=== PATIENT | female | born 1980 | race Asian ===

== ENCOUNTER 2016-05-07 09:53 | Emergency (ER) | payer BC ==
[2016-05-07] MEDS ORDERED: Al Hydrox/Mg Hydrox/Simet LIQ* 30 ML UDC PO ONE (10:37)
--- NOTE | 2016-05-07 11:43 | RAD ---
Indication: Epigastric abdominal pain. Vomiting. Assess for perforation. Comparison: None. Technique: Supine and upright views of the abdomen. Report: Negative for free air beneath the diaphragm. Normal bowel gas pattern. Moderate stool in the colon. LEFT pelvic phlebolith. No suspicious calcifications or mass effect. Clear lung bases. IMPRESSION: No evidence for free air. Negative exam.
--- NOTE | 2016-05-07 12:09 | UC ---
Rachel Turner SooYoung, scribed for [facility],David Avila MD on 05/07/16 at 1009 . Abdominal Pain Female HPI - HPI Summary HPI Summary: NOTE: Vital signs stable. Afebrile. emp is 97.6. Pulse ox 96. Pain is 7 out of 10, sharp, located at epigastric. Occasional EtOH, nonsmoker. Hx: treated for hepatitis and helicobacter. Positive PMHx: [place], hepatitis. Negative gallbladder US on 08/30/11. RUQ pain evaluated on 01/02/14, normal hepatic biliary scan with gallbladder ejection fraction. Dx: gastritis and helicobacter infection on 02/17. IN ROOM NOTE: A 35 y/o F presents to [facility] with c/o acute on chronic epigastric abd pain onset approx two weeks ago, worsening three days ago. Positive sx: nausea, vomiting ( 1x this AM), diarrhea yesterday. Denies fever, dysuria. Associated sx: heartburn. She describes the pain as sharp and burning, non-radiating. Alleviating factors: OTC medications (Pepcid), bent over position. Aggravating factors: eating. She notes waking from the pain at night. Does not take ulcer medications. No FHx of ulcers. PCP is Dr. Swanson. Pt was seen by a qual field manager, dx: helicobacter in 2009. NURSE'S NOTE: pt states that she is having stomach pain, pt points to epigastric area. pt states that this pain has been going on for the past 2 weeks and she feels that it is getting worse. pt states she is now having diarrhea that started yesterday. [ End ] - History of Current Complaint Stated Complaint: STOMACH PAIN Hx Obtained From: Patient, Family/Stock Mixer - Hx Last Menstrual Period: 02/11/14 Onset/Duration: Lasting Days, Still Present Severity Currently: Moderate Pain Intensity: 7 Pain Scale Used: 0-10 Numeric Location: Epigastric Radiates: No Character: Burning, Sharp Aggravating Factor(s): Food Alleviating Factor(s): Position, OTC Analgesics Associated Signs and Symptoms: Positive: Nausea, Vomiting, Diarrhea. Negative: Fever, Urinary Symptoms Allergies/Adverse Reactions: Allergies Allergy/AdvReac Type Severity Reaction Status Date / Time Amoxicillin [From Augmentin] Allergy Severe See Comment Verified 03/05/12 08:01 Clavulanic Acid Allergy Severe See Comment Verified 03/05/12 08:01 [From Augmentin] PMH/Surg Hx/FS Hx/Imm Hx Previously Healthy: Yes Endocrine History Of: Denies: Diabetes, Thyroid Disease, Hyperthyroidism, Hypothyroidism Cardiovascular History Of: Denies: Cardiac Disorders, Hypertension Neurological History Of: Denies: TIA, Seizures Psychological History Of: Denies: Anxiety, Depression - Surgical History Surgical History: Yes Surgery Procedure, Year, and Place: wisdom teeth extraced - Family History Known Family History: Positive: Diabetes, Other - POS: brain CA - Social History 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 Lives: With Family Alcohol Use: Occasionally Substance Use Type: None Smoking Status (MU): Never Smoked Tobacco Have You Smoked in the Last Year: No Review of Systems Constitutional: Negative Cardiovascular: Other - pos: heartburn Gastrointestinal: Abdominal Pain, Vomiting, Diarrhea, Other - pos: nausea Genitourinary: Negative All Other Systems Reviewed And Are Negative: Yes Physical Exam Triage Information Reviewed: Yes Appearance: Well-Appearing, No Pain Distress, Well-Nourished Vital Signs: Initial Vital Signs Temp 97.6 F 05/07/16 10:10 Pulse 80 05/07/16 10:10 Resp 18 05/07/16 10:10 BP 114/71 05/07/16 10:10 Pulse Ox 96 05/07/16 10:10 Vital Signs Reviewed: Yes Eyes: Positive: Conjunctiva Clear ENT: Positive: Hearing grossly normal, Pharynx normal, TMs normal. Negative: Muffled/hoarse voice Neck: Positive: Supple, No Lymphadenopathy Respiratory: Positive: Chest non-tender, Lungs clear, Normal breath sounds, No respiratory distress Cardiovascular: Positive: RRR, No Murmur Abdomen Description: Positive: No Organomegaly, Soft, Other: - POS: PAIN AT SUBXIPHOID REGION, MILD DISCOMFORT IN RUQ AND EPIGASTRIC. Negative: CVA Tenderness (R), CVA Tenderness (L) Bowel Sounds: Positive: Present Musculoskeletal: Positive: Strength Intact, Other: - [place] Neurological: Positive: Alert Psychological: Positive: Age Appropriate Behavior Skin: Negative: rashes Diagnostics - Radiology ABD XR Xray Interpretation: Positive (See Comments) - IMPRESSION: No evidence for free air. Negative exam. Radiology Interpretation Completed By: Radiologist Abd Pain Female Course/Dx - Course Course Of Treatment: MDM: UA: negative, UB trace intact. Abd XR: negative. Discussed with pt and at length plan of care, d/c home with three prescriptions and Pepto Bismal (pt is allergic to amoxicillan). Also, have given her Zofran for nausea. Mentioned to her that she had considerable amount of stool in her colon but is not obstructed or perforated. She'll begin regime and call her primary doctor in two days. - Differential Dx/Diagnosis Differential Diagnosis: Other - biliary colic, constipation, peptic dz, gastritis (ulcer) Provider Diagnoses: peptic dz Discharge - Discharge Plan Condition: Stable Disposition: HOME Prescriptions: Clarithromycin [Clarithromycin 500 MG ER] 500 mg PO BID #30 tab MDD 2 Metronidazole [Flagyl 500 MG TAB] 500 mg PO BID #30 tab MDD 2 Omeprazole CAP* [Prilosec CAP* 20 MG] 20 mg PO DAILY #30 cap.dr MDD 2 Ondansetron ODT TAB* [Zofran Odt TAB*] 4 mg PO Q6H #10 tab.odt MDD 4 Patient Education Materials: Gastritis (ED), Helicobacter Pylori (ED), Diet for Ulcers and Gastritis (ED) Referrals: Mario Swanson MD [Primary Care Provider] - Additional Instructions: WE DISCUSSED: 1. You probably have gastritis or an ulcer. 2. Start the following medications: Clarithromycin: 500mg, twice a day Flagyl: 500mg, twice a day Omeprazole, 20mg, twice a day Pepto Bismol: one tablespoon, four times a day; get this over the counter. Zofran for nausea, up to 4 a day Take this for 2 weeks. 3. Your x ray doesn't show obstruction or perforation. 4. Follow up with your doctor next week. Go to ED if you have any new or increasing abdominal pain. Simplify your diet today and tomorrow: no fried foods, meat or dairy. The documentation as recorded by the Rachel rivera SooYoung accurately reflects the service I personally performed and the decisions made by me, David Acosta MD.
[2016-05-07 13:05] VITALS: BP 118/83
--- NOTE | 2016-05-07 13:05 | UC ---
I, Noelle Ramos, scribed for David Acosta MD on 05/07/16 at 1220 . Progress - Progress Note Progress Note: 1215: As nurse preparing to discharge pt, pt had possible vasovagal response. Pt given fluids orally, she laid down, will reevaluate. 1250: Pt re-evaluated, near-syncopal episode but did not experience LOC. Vital signs as documented by nurse show increase in pulse and no significant change in BP, slight dizziness on standing. Pt told to rest and drink lots of fluids. No evidence of perforation, or gastritis or ulcerative bleeding. I spoke to pt about her pain in RUQ, which was previously worked up without dx of gallbladder dz, she may need this. She was given med for her ulcer treatment and will F/U on Monday with her PCP. Her and know to follow up at ED if needed until then. Pt told us she has a hx of orthostasis and is being treated for this. Orthostatic results at 1250: Lying: HR 59, BP 108/178, neg dizziness. Sitting: HR 74, BP 109/59, pos dizziness. Standing: HR 75, BP 118/83, pos dizziness. The documentation as recorded by the scribeRachel SooYoung accurately reflects the service I personally performed and the decisions made by me, David Acosta MD.
== END 2016-05-07 12:13 | disposition home or self-care (01) ==
LOC: UCEAST 09:53
DX: K30 Functional dyspepsia (principal); Z88.1 Allergy status to other antibiotic agents; Z32.02 Encounter for pregnancy test, result negative
CPT/HCPCS: 74020; 81003; 84702; 99212; A9270-GY; G0463

== ENCOUNTER 2016-05-19 23:27 | Emergency (ER) | payer BC ==
[2016-05-19] MEDS ORDERED: NS 0.9% 1000 ML* 1,000 ML IV ONE (23:56)
[2016-05-20 00:35] LABS: Hematocrit 43 % (35-47); Hemoglobin 14.5 g/dl (12.0-16.0); Mean Corpuscular HGB Conc 34 g/dl (31-36); Mean Corpuscular Hemoglobin 28 pg (27-31); Mean Corpuscular Volume 84 fL (80-97); Mean Platelet Volume 8 um3 (7.4-10.4); Red Blood Count 5.14 10^6/ul (4.0-5.4); Red Cell Distribution Width 13 % (10.5-15); White Blood Count 9.6 10^3/ul (3.5-10.8)
[2016-05-20 00:46] LABS: ALT 14 U/L (7-52); AST 17 U/L (13-39); Albumin 4.3 g/dL (3.2-5.2); Alkaline Phosphatase 56 U/L (34-104); Anion Gap 10 mmol/L (2-11); BUN/Creatinine Ratio 10.5 (8-20); Blood Urea Nitrogen 6 mg/dL (6-24); CO2 Carbon Dioxide 24 mmol/L (22-32); Calcium 9.5 mg/dL (8.6-10.3); Chloride 97 mmol/L (101-111); EGFR African American 156.1 (>60); EGFR Non-African American 121.4 (>60); Globulin 3.6 g/dL (2-4); Glucose 122 mg/dL (70-100); Lipase < 10 U/L (11.0-82.0); Potassium 3.8 mmol/L (3.5-5.0); Sodium 131 mmol/L (133-145); Total Protein 7.9 g/dL (6.4-8.9)
[2016-05-20 01:14] LABS: Urine Bacteria 1+ (Absent); Urine Bilirubin Negative (Negative); Urine Glucose Negative (Negative); Urine Nitrite Negative (Negative)
[2016-05-20] MEDS ORDERED: Lidocaine 2% VISCOUS* 15 ML UDC PO ONE (01:41)
[2016-05-20] MEDS ORDERED: Al Hydrox/Mg Hydrox/Simet LIQ* 30 ML UDC PO ONE (01:41)
[2016-05-20] MEDS ORDERED: diPHENhydraMINE IV* 50 MG in NS 0.9% 50 ML* 50 ML IVPB ONE (02:27)
[2016-05-20] MEDS ORDERED: methylPREDNISolone SOD SUCC* 125 MG 2 ML VIAL IV ONE (02:27)
[2016-05-20 07:31] VITALS: BP 104/67
--- NOTE | 2016-05-20 07:50 | RAD ---
INDICATION: Right upper quadrant pain. COMPARISON: Comparison is made with a prior right upper quadrant ultrasound from August 30, 2011. TECHNIQUE: Multiple real-time images of the right upper quadrant were obtained. FINDINGS: The gallbladder appear normal. No gallbladder wall thickening or pericholecystic fluid is present. No intra or extrahepatic ductal distention is present. The common bile duct measured 0.2 cm in diameter. The liver is normal in size without significant focal abnormality. The pancreas is partially obscured by overlying bowel gas. The right kidney is normal in size without evidence for hydronephrosis. IMPRESSION: NEGATIVE EXAM.
== END 2016-05-20 08:04 | disposition home or self-care (01) ==
LOC: ED 23:27
DX: R10.11 Right upper quadrant pain (principal)
CPT/HCPCS: 36415; 76705; 80053; 81003; 81015; 83690; 85025; 87086; 87502; 96374; 99282; A9270-GY; J1200; J2930

== ENCOUNTER 2017-01-26 10:06 | Inpatient (IN) | payer BC, OTHER ==
[2017-01-26] MEDS: Vancomycin(*) 1,000 MG in D5W 250 ML BAG* 250 ML IVPB SCH (13:29)
[2017-01-26 13:34] LABS: Hematocrit 41 % (35-47); Hemoglobin 13.4 g/dl (12.0-16.0); Mean Corpuscular HGB Conc 33 g/dl (31-36); Mean Corpuscular Hemoglobin 29 pg (27-31); Mean Corpuscular Volume 86 fL (80-97); Mean Platelet Volume 11 um3 (7.4-10.4); Red Blood Count 4.71 10^6/ul (4.0-5.4); Red Cell Distribution Width 14 % (10.5-15); White Blood Count 9.3 10^3/ul (3.5-10.8)
[2017-01-26] MEDS ORDERED: OBEPIDURAL* 250 ML ONE (16:07)
[2017-01-27] MEDS: Vancomycin(*) 1,000 MG in D5W 250 ML BAG* 250 ML IVPB SCH (01:04)
[2017-01-27] MEDS ORDERED: Oxytocin in LR* 20 UNITS/1,000 ML BAG IVPB ONE (05:08)
[2017-01-27] MEDS ORDERED: Witch Hazel PAD* JAR TOPICAL PRN (05:27)
[2017-01-27] MEDS ORDERED: Tetan/Diph/Pertus SYR(Tdap)* 0.5 ML SYR(BOOSTRIX) use SYR IM ONE (05:27)
[2017-01-27] MEDS ORDERED: Dibucaine 1% 28.35 GM TUBE PR PRN (05:27)
[2017-01-27] MEDS ORDERED: Glycerin ADULT SUPP PR PRN (05:27)
[2017-01-27] MEDS ORDERED: Acetaminophen TAB* 325 MG PO PRN (05:27)
[2017-01-27] MEDS ORDERED: Lidocaine 1% MPF* 2 ML VIAL ONE (07:01)
[2017-01-27] MEDS: Ibuprofen TAB* 600 MG PO PRN ×3 (08:41→21:51)
[2017-01-27] MEDS: Docusate CAP* 100 MG PO SCH ×3 (08:42→21:51)
[2017-01-27] MEDS: Simethicone TAB* 80 MG TAB.CHEW PO SCH (15:29)
--- NOTE | 2017-01-27 20:45 | PTEDU ---
Patient Name: SEJAL GUZMAN SEJAL GUZMAN selected video: Never Ever Shake a Baby to view on 01/27/2017 at 8:45:01 PM from [id number]
[2017-01-28] MEDS: Ferrous Gluconate TAB* 324 MG TAB PO SCH ×2 (08:36→22:22)
[2017-01-28] MEDS: Ibuprofen TAB* 600 MG PO PRN ×3 (08:37→20:45)
[2017-01-28] MEDS: Docusate CAP* 100 MG PO SCH ×3 (08:37→20:45)
[2017-01-28 12:16] LABS: Hematocrit 34 % (35-47); Hemoglobin 11.4 g/dl (12.0-16.0); Mean Corpuscular HGB Conc 34 g/dl (31-36); Mean Corpuscular Hemoglobin 29 pg (27-31); Mean Corpuscular Volume 86 fL (80-97); Mean Platelet Volume 10 um3 (7.4-10.4); Red Blood Count 3.92 10^6/ul (4.0-5.4); Red Cell Distribution Width 14 % (10.5-15); White Blood Count 14.4 10^3/ul (3.5-10.8)
[2017-01-28 19:52] VITALS: BP 118/83
[2017-01-29] MEDS: Ibuprofen TAB* 600 MG PO PRN (03:57)
[2017-01-29] MEDS: Docusate CAP* 100 MG PO SCH (08:50)
== END 2017-01-29 12:28 | disposition home or self-care (01) | DRG 560 ==
LOC: MCHOBOUT 10:06 → MCHOB 10:35
PROVIDERS: ADMIT Midwife; ATTEND Midwife
PROC: 10E0XZZ Delivery of Products of Conception, External Approach (ICD-10-PCS; principal; 2017-01-27)
PROC: 10907ZC Drainage of Amniotic Fluid, Therapeutic from Products of Conception, Via Natural or Artificial Opening (ICD-10-PCS; 2017-01-27)
PROC: 0KQM0ZZ Repair Perineum Muscle, Open Approach (ICD-10-PCS; 2017-01-27)
DX: O24.429 Gestational diabetes mellitus in childbirth, unspecified control (principal); O48.0 Post-term pregnancy; O99.824 Streptococcus B carrier state complicating childbirth; O70.1 Second degree perineal laceration during delivery; O77.0 Labor and delivery complicated by meconium in amniotic fluid; Z3A.40 40 weeks gestation of pregnancy; Z37.0 Single live birth
CPT/HCPCS: 36415; 85025; 86850; 86900; 86901; A9270-GY; J3370

== ENCOUNTER 2017-10-23 17:45 | Emergency (ER) | payer OTHER ==
--- OUTSIDE RECORDS SUMMARY | 2017-10-23 17:50 | XMS REPORT ---
:1980 External Reference #:[id number] Author Organization [employer] Address [address] [place] [address] [place] [address] Phone [phone] Care Team Providers Name Role Phone Mario Swanson MD Primary Care Physician Unavailable Payers Type Date Identification Numbers Payment Provider Subscriber Commercial Policy Number: [id number] [facility] Vargas Velásquez PayID: [id number] [address] [place] [address] Problems Description No Information Family History Date Family Member(s) Problem(s) Comments General Non-Contributory Social History Type Date Description Comments Marital Status Lives With Spouse Occupation Unemployed ETOH Use Denies alcohol use Smoking Patient has never smoked Recreational Drug Use Denies Drug Use Daily Caffeine Does Not Consume Caffeine Exercise Type/Frequency Does not exercise Allergies, Adverse Reactions, Alerts Date Description Reaction Status Severity Comments 09/27/2017 Amoxicillin active 09/27/2017 Biaxin active Medications Medication Date Status Form Strength Qnty SIG Indications Ordering Provider No Active Active Unknown Medications 018 No Active Hx Unknown Medications 018 - 018 Cefdinir /0 Hx Capsules 300mg 1 capsule Unknown 000 by mouth twice a day Vital Signs Date Vital Result Comment 09/27/2017 Height 62 inches 5'2" Weight 147.00 lb Heart Rate 60 /min BP Systolic 104 mmHg BP Diastolic 68 mmHg Respiratory Rate 16 /min Body Temperature 97.3 F BMI (Body Mass Index) 26.9 kg/m2 Results Description No Information Procedures Date CPT Code Description Status 09/27/2017 38348 Anoscopy Completed Plan of Care 09/27/2017 - Cristóbal Vallejo MDK64.4 Residual hemorrhoidal skin tagsFollow up :None needed
--- OUTSIDE RECORDS SUMMARY | 2017-10-23 17:51 | XMS REPORT ---
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 Active Onset: 11/23/2011 Thoracic and lumbosacral neuritis Delgado Mclean M.D. Active Onset: 08/29/2011 Gastritis Delgado Mclean M.D. Active Onset: 08/29/2011 Epigastric pain Delgado Mclean M.D. Active Onset: 08/25/2011 Inflammatory disease of liver Delgado Mclean M.D. Active Onset: 07/20/2011 Neck pain Fang Chanel M.D. Active Onset: 07/04/2011 Acute lymphadenitis Fang Chanel M.D. 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 Exercises regularly Allergies, Adverse Reactions, Alerts Date Description Reaction Status Severity Comments 11/23/2011 Amoxicillin active 05/23/2016 Biaxin active 10/27/2010 NKDA inactive Medications Medication Date Status Form Strength Qnty SIG Indications Ordering Provider Cefdinir 09/26/ Active Capsules 300mg 20cap 1 tablet H66.92 Manuela 2017 s twice a Mayelin day DOLLY Callejas No Active 09/26/ Hx Unknown Medications 2017 - 2017 Pantoprazole 05/21/ Hx Tablets DR 20mg 30tab 1 by mouth R10.13 Karis Sodium 2015 - s every day DOLLY Marino 2016 No Active 05/17/ Hx Unknown Medications 2015 - 2015 No Active 05/12/ Hx Unknown Medications 2015 - 2015 Cipro 05/12/ Hx Tablets 250mg 10tab 1 by mouth Jesusita 2015 - s twice a day Seth 05/17/ Afnp-C 2015 Omeprazole 02/24/ Hx Capsules 40mg 30cap 1 by mouth Mario reyes every day Sky, 05/12/ MMiki 2015 No Active 11/04/ Hx Unknown Medications 2013 - 2013 Protonix 11/04/ Hx Tablets 40mg 30tab 1 po qd Mario Swanson, 02/24/ MMiki 2013 Physical Therapy Hx 1unit treatment Delgado 2011 - s and Maya Mclean, 11/04/ evaluation MMiki 2013 of low back pain Ceftin 07/03/ Hx Tablets 250mg 14tab 1 po bid Katlin3 Fang Riggs 2012 [place] s for 7 days Darío 07/19/ MMiki 2011 Physical Therapy 02/07/ Hx please 724.2 Jesusita 2010 - evaluate Seth, 07/03/ and treat Afnp-C 2011 for low back pain Medrol Dosepak 02/07/ Hx Tablets 4mg 1pk take as 724.2 Jesusita 2010 - directed Seth, 02/14/ Afnp-C 2010 Vicodin 02/07/ Hx Tablets 5-500mg 30tab 1-2 po 724.2 Jesusita 2010 - s q4h-6h prn Seth, 07/03/ pain Afnp-C 2012 Ambien CR 11/02/ Hx Tablets ER 6.25mg 30tab 1 po qhs 780.52 Delgado 2010 [place] Mclean, 02/07/ M.D. 2010 failure to maintain sleep Sertraline HCL 05/25/ Hx Tablets 50mg 90tab 1 po qd 296.31 Delgado 2010 - may Mclean, M.D. 2010 Note 10/08/ Hx 1unit please Delgado 2009 - s excuse from Maya Mclean, 06/28/ work for 14 M.D. 2010 days from today due to illness Clarithromycin 10/07/ Hx Tablets 500mg 28tab 1 bid with 789.06 Delgado 2009 - s food for 14 IgnacioEdie Vinay, 11/09/ days M.D. 2009 Amoxicillin 10/07/ Hx Tablets 875mg 28tab one tab po 789.06 Delgado 2009 - s bid for 14 Maya Mclean, 11/09/ days M.D. 2009 Lansoprazole 10/07/ Hx Capsules 30mg 90cap 1 po qd 789.06 Delgado 2009 - DR amy Mclean, M.D. 2009 Meclizine HCL 10/07/ Hx Tablets 12.5mg 30tab one to two 386.10 Delgado 2009 - s tab po Maya Mclean, 11/09/ every 12 M.D. 2010 hours Omeprazole 10/07/ Hx Capsules 40mg 60cap 1 po bid 789.06 Delgado 2009 - DR amy Mclean, 06/28/ M.D. 2010 Cyclessa 06/16/ Hx Tablets 1pk 1 po qd Jesusita 2009 - Seth, 11/22/ Afnp-C 2011 Paxil 03/02/ Hx Tablets 20mg 30tab 1 po qd 296.31 Delgado 2009 - amy Mclean, 05/25/ M.D. 2010 Citalopram 02/05/ Hx Tablets 10mg Mario Magaña Hydrobromide 2008 - Sky, 02/05/ M.D. 2008 Paxil 02/05/ Hx Tablets 10mg 30tab 1 po qd Mario Magaña 2009 - s Sky, 03/02/ M.D. 2009 Loestrin 24 Fe / Hx Tablets 1-20mg-mc Unknown 0000 - g 04/20/ 2010 Pepcid ac / Hx Tablets 10mg 60tab 1 bid prn Unknown 0000 - s for stomach 2011 Omeprazole / Hx Capsules 20mg 30cap 1 by mouth Mario reyes every day Sky 09/25/ Jarret 2018 Vital Signs Date Vital Result Comment 09/26/2017 BP Systolic 94 mmHg BP Diastolic 62 mmHg Heart Rate 72 /min Body Temperature 98.1 F Height 63.5 inches 5'3.50" Weight 148.00 lb BMI (Body Mass Index) 25.8 kg/m2 05/23/2016 BP Systolic 100 mmHg BP Diastolic 70 mmHg Heart Rate 72 /min Body Temperature 98.4 F Respiratory Rate 16 /min Height 63.5 inches 5'3.50" Weight 161.50 lb BMI (Body Mass Index) 28.2 kg/m2 05/12/2016 BP Systolic 110 mmHg BP Diastolic 60 mmHg Heart Rate 68 /min Body Temperature 98.2 F Respiratory Rate 16 /min Height 63.5 inches 5'3.50" 05/22/2015 BP Systolic 100 mmHg BP Diastolic 52 mmHg Heart Rate 72 /min Body Temperature 98.1 F Respiratory Rate 16 /min Height 63.5 inches 5'3.50" Weight 151.25 lb BMI (Body Mass Index) 26.4 kg/m2 05/13/2015 BP Systolic 106 mmHg BP Diastolic 64 mmHg Heart Rate 72 /min Body Temperature 96.9 F Respiratory Rate 16 /min Height 63.5 inches 5'3.50" Weight 151.25 lb BMI (Body Mass Index) 26.4 kg/m2 02/24/2014 BP Systolic 122 mmHg BP Diastolic 70 mmHg Heart Rate 68 /min Body Temperature 98.6 F Respiratory Rate 16 /min Height 63.5 inches 5'3.50" Weight 154.00 lb BMI (Body Mass Index) 26.8 kg/m2 11/27/2013 BP Systolic 122 mmHg BP Diastolic 70 mmHg Heart Rate 64 /min Body Temperature 96.9 F Respiratory Rate 18 /min Height 63.5 inches 5'3.50" Weight 150.00 lb BMI (Body Mass Index) 26.2 kg/m2 11/04/2013 BP Systolic 120 mmHg BP Diastolic 70 mmHg Heart Rate 58 /min Body Temperature 97.8 F Respiratory Rate 16 /min Height 63.5 inches 5'3.50" Weight 151.00 lb BMI (Body Mass Index) 26.3 kg/m2 01/23/2012 BP Systolic 110 mmHg BP Diastolic 70 mmHg Heart Rate 76 /min Body Temperature 97.2 F Height 63.5 inches 5'3.50" Weight 164.00 lb BMI (Body Mass Index) 28.6 kg/m2 11/23/2011 BP Systolic 112 mmHg BP Diastolic 70 mmHg Heart Rate 72 /min Body Temperature 97.6 F Height 63.5 inches 5'3.50" Weight 163.00 lb BMI (Body Mass Index) 28.4 kg/m2 09/05/2011 BP Systolic 98 mmHg BP Diastolic 82 mmHg Heart Rate 78 /min Body Temperature 98.5 F Height 63.5 inches 5'3.50" Weight 164.00 lb BMI (Body Mass Index) 28.6 kg/m2 08/29/2011 BP Systolic 104 mmHg BP Diastolic 70 mmHg Heart Rate 84 /min Body Temperature 98.3 F Height 63.5 inches 5'3.50" Weight 162.00 lb BMI (Body Mass Index) 28.2 kg/m2 08/25/2011 BP Systolic 120 mmHg BP Diastolic 88 mmHg Heart Rate 84 /min Body Temperature 98.3 F Height 63.5 inches 5'3.50" Weight 162.00 lb BMI (Body Mass Index) 28.2 kg/m2 07/20/2011 BP Systolic 102 mmHg BP Diastolic 72 mmHg Heart Rate 78 /min Body Temperature 98.7 F Height 63.5 inches 5'3.50" Weight 166.00 lb BMI (Body Mass Index) 28.9 kg/m2 07/04/2011 BP Systolic 102 mmHg BP Diastolic 70 mmHg Heart Rate 72 /min Body Temperature 98.7 F Height 63.5 inches 5'3.50" Weight 165.00 lb BMI (Body Mass Index) 28.8 kg/m2 02/15/2011 BP Systolic 102 mmHg BP Diastolic 62 mmHg Heart Rate 72 /min Respiratory Rate 15 /min Height 63.5 inches 5'3.50" Weight 166.00 lb BMI (Body Mass Index) 28.9 kg/m2 02/07/2011 BP Systolic 118 mmHg BP Diastolic 80 mmHg Heart Rate 76 /min Height 63.5 inches 5'3.50" 11/02/2010 BP Systolic 104 mmHg BP Diastolic 58 mmHg Heart Rate 72 /min Body Temperature 98.3 F Height 63.5 inches 5'3.50" Weight 166.00 lb BMI (Body Mass Index) 28.9 kg/m2 08/02/2010 BP Systolic 104 mmHg BP Diastolic 68 mmHg Heart Rate 76 /min Body Temperature 97.9 F Respiratory Rate 16 /min Height 63.5 inches 5'3.50" Weight 167.00 lb BMI (Body Mass Index) 29.1 kg/m2 06/28/2010 BP Systolic 90 mmHg BP Diastolic 70 mmHg Heart Rate 78 /min Body Temperature 98.0 F Height 63.5 inches 5'3.50" Weight 164.00 lb BMI (Body Mass Index) 28.6 kg/m2 05/25/2010 BP Systolic 100 mmHg BP Diastolic 70 mmHg Heart Rate 76 /min Height 63.5 inches 5'3.50" Weight 166.00 lb BMI (Body Mass Index) 28.9 kg/m2 12/21/2009 BP Systolic 100 mmHg BP Diastolic 70 mmHg Heart Rate 56 /min Body Temperature 98.1 F Height 63.5 inches 5'3.50" Weight 161.00 lb BMI (Body Mass Index) 28.1 kg/m2 11/09/2009 BP Systolic 104 mmHg BP Diastolic 70 mmHg Heart Rate 60 /min irr/skipping Body Temperature 97.7 F Respiratory Rate 16 /min Height 63.5 inches 5'3.50" Weight 155.00 lb BMI (Body Mass Index) 27.0 kg/m2 10/20/2009 BP Systolic 102 mmHg BP Diastolic 82 mmHg Heart Rate 66 /min Body Temperature 98.0 F Height 63.5 inches 5'3.50" Weight 157.00 lb BMI (Body Mass Index) 27.4 kg/m2 10/07/2009 BP Systolic 100 mmHg BP Diastolic 62 mmHg Heart Rate 68 /min Body Temperature 98.7 F Respiratory Rate 16 /min Height 63.5 inches 5'3.50" Weight 156.00 lb BMI (Body Mass Index) 27.2 kg/m2 06/16/2009 BP Systolic 110 mmHg BP Diastolic 70 mmHg Heart Rate 80 /min Body Temperature 98.1 F Weight 162.00 lb 03/17/2009 BP Systolic 100 mmHg BP Diastolic 70 mmHg Heart Rate 68 /min Weight 163.00 lb 03/02/2009 BP Systolic 110 mmHg BP Diastolic 70 mmHg Heart Rate 72 /min Height 63.5 inches 5'3.50" Weight 160.00 lb BMI (Body Mass Index) 27.9 kg/m2 02/05/2009 BP Systolic 90 mmHg BP Diastolic 60 mmHg Heart Rate 68 /min Height 63.5 inches 5'3.50" Weight 156.00 lb BMI (Body Mass Index) 27.2 kg/m2 12/09/2008 BP Systolic 82 mmHg BP Diastolic 64 mmHg Heart Rate 96 /min Body Temperature 99.1 F Height 63.5 inches 5'3.50" Weight 158.00 lb BMI (Body Mass Index) 27.5 kg/m2 12/02/2008 BP Systolic 88 mmHg BP Diastolic 60 mmHg Heart Rate 56 /min Body Temperature 98.2 F Height 63.5 inches 5'3.50" Weight 154.00 lb BMI (Body Mass Index) 26.8 kg/m2 Results Test Date Test Result H/L Range Note Laboratory test 06/24/2016 hCG,Beta Positive mIU/mL Negative <6 1 finding Subunit,Qual,Serum Rapid Influenza A & 05/20/2016 Influenza A NEGATIVE Negative 2 B Molecular Molecular Influenza B Molecular NEGATIVE Negative Laboratory test finding 05/07/2016 Poc , Urine Negative Negative 3 Poc Urinalysis 05/07/2016 Poc Glucose, Urine Negative Negative Poc Bilirubin, Urine Negative Negative Poc Ketone, Urine Negative Negative Poc Specific [place], Urine 1.015 1.010-1.030 Poc Blood, Urine Trace-intact Negative Poc pH, Urine 6.5 5-9 Poc Protein, Urine Negative Negative Poc Urobilinogen, Urine 0.2 Negative Poc Nitrite, Urine Negative Negative Poc Leukocytes, Urine Negative Negative Poc Color, Urine Yellow Poc Clarity, Urine Clear 4 CBC With Differential/Platelet 05/26/2015 WBC 7.1 x10E3/uL 3.4-10.8 1 RBC 4.84 x10E6/uL 3.77-5.28 1 Hemoglobin 14.0 g/dL 11.1-15.9 1 Hematocrit 42.0 % 34.0-46.6 1 MCV 87 fL 79-97 1 MCH 28.9 pg 26.6-33.0 1 MCHC 33.3 g/dL 31.5-35.7 1 RDW 13.8 % 12.3-15.4 1 Platelets 313 x10E3/uL 150-379 1 Neutrophils 51 % 1 Lymphs 39 % 1 Monocytes 7 % 1 Eos 2 % 1 Basos 1 % 1 Immature Cells TNP 1 Neutrophils (Absolute) 3.7 x10E3/uL 1.4-7.0 1 Lymphs (Absolute) 2.8 x10E3/uL 0.7-3.1 1 Monocytes(Absolute) 0.5 x10E3/uL 0.1-0.9 1 Eos (Absolute) 0.1 x10E3/uL 0.0-0.4 1 Baso (Absolute) 0.1 x10E3/uL 0.0-0.2 1 Immature Granulocytes 0 % 1 Immature Grans (Abs) 0.0 x10E3/uL 0.0-0.1 1 NRBC TNP 1 Hematology Comments: TNP 1 Comp. Metabolic Panel (14) 05/26/2015 Glucose, Serum 102 mg/dL High 65-99 1 BUN 8 mg/dL 6-20 1 Creatinine, Serum 0.53 mg/dL Low 0.57-1.00 1 eGFR If NonAfricn Am 125 mL/min/1.73 >59 1 eGFR If Africn Am 144 mL/min/1.73 >59 1 BUN/Creatinine Ratio 15 8-20 1 Sodium, Serum 142 mmol/L 134-144 1 Potassium, Serum 4.3 mmol/L 3.5-5.2 1 Chloride, Serum 102 mmol/L 97-108 1 Carbon Dioxide, Total 25 mmol/L 18-29 1 Calcium, Serum 9.2 mg/dL 8.7-10.2 1 Protein, Total, Serum 6.9 g/dL 6.0-8.5 1 Albumin, Serum 4.5 g/dL 3.5-5.5 1 Globulin, Total 2.4 g/dL 1.5-4.5 1 A/G Ratio 1.9 1.1-2.5 1 Bilirubin, Total 0.4 mg/dL 0.0-1.2 1 Alkaline Phosphatase, S 46 IU/L 39-117 1 Ast (Sgot) 13 IU/L 0-40 1 Alt (SGPT) 5 IU/L 0-32 1 Lipid Panel 05/26/2015 Cholesterol, Total 216 mg/dL High 100-199 1 Triglycerides 87 mg/dL 0-149 1 HDL Cholesterol 64 mg/dL >39 1, 5 VLDL Cholesterol Henry 17 mg/dL 5-40 1 LDL Cholesterol Calc 135 mg/dL High 0-99 1 Comment: TNP 1 Pap HPV High Risk 05/22/2015 Diagn See Comment: 6 Adeq See Comment: 7 [email or web address] See Comment: 8 Perfor See Comment: 9 Comm . Note See Comment: 10 Iglbp See Comment: 11 HPV, high-risk Negative Negative 12 Laboratory test finding 05/22/2015 PDF [id number] SEE IMAGE Ua - Non Micro (Fma) 05/22/2015 Appearance CLEAR Color YELLOW Glucose, Urine (Fma/CMC/CTX) NEG Bilirubin NEG Ketones NEG SP Grav 1.020 Blood NEG PH 7.0 Protein NEG Urobil 0.2 Nitrite NEG Leukocytes (Fma/CMC/Centrex) NEG Ua - Micro (Fma) 05/13/2015 Appearance cloudy Color yellow Glucose, Urine (Fma/CMC/CTX) - Bilirubin - Ketones - SP Grav 1.020 Blood moderate (menses) PH 7.0 Protein 2+ (ssa) Urobil 0.2 Nitrite - Leukocytes (Fma/CMC/Centrex) moderate Hyaline - /Lpf Granular - /Lpf WBC (Fma,Centrex) 8-12 RBC 5-10 Mucus (Fma/CBC/Centrex) sm amt /Lpf Epith occ /Lpf Bacteria trace /Hpf Amorphous (Fma/CMC/Centrex) - /Lpf Crystals, Fluid (Fma/CMC/CTX) - Urine Culture Routine 05/13/2015 Urine Culture, Routine Final report 13 , 14 Result 1 Escherichia coli 13, 15 Antimicrobial Susceptibility See Comment: 13, 16 Laboratory test finding 11/05/2013 Stool Helicobacter Negative Negative 17 pylori Ag CBC 11/04/2013 WBC 5.5 x10E3/uL 4.3-10.9 18 RBC 4.82 x10E6/uL 3.80-5.30 18 Hemoglobin 13.8 g/dL 11.8-15.8 18 Hematocrit 41.7 % 35.0-47.0 18 MCV 86.5 fl 82.0-98.0 18 MCH 28.6 pg 27.5-33.5 18 MCHC 33.1 g/dL 32.0-36.0 18 RDW 13.5 % 11.5-14.5 18 Platelet Count 312 x10E3/uL 130-400 18 MPV 10.4 fl 8.6-12.6 18 Segmented Neutrophils 41.9 % Low 44.0-74.0 18 Lymphocytes 47.3 % High 15.0-45.0 18 Monocytes 6.7 % 2.0-13.0 18 Eosinophils 2.7 % 0.0-6.0 18 Basophils 1.4 % 0.0-2.0 18 Neutrophil Absolute 2.3 x10E3/uL 1.4-7.0 18 Lymphocytes Absolute 2.6 x10E3/uL 1.0-3.4 18 Monocyte Absolute 0.4 x10E3/uL 0.2-1.0 18 Eosinophil Absolute 0.1 x10E3/uL 0.0-0.5 18 Basophil Absolute 0.1 x10E3/uL 0.0-0.2 18 Comprehensive Metabolic 11/04/2013 Glucose 86 mg/dL 70-100 18 BUN 9 mg/dL 4-18 18 Creatinine, Serum 0.58 mg/dL 0.50-1.10 18 Sodium 140 mmol/L 136-146 18 Potassium 4.3 mmol/L 3.5-5.3 18 Chloride 103 mmol/L 98-110 18 Carbon Dioxide 29 mmol/L 20-32 18 Albumin 4.6 g/dL 3.5-4.7 18 Protein, Total 7.5 g/dL 6.4-8.3 18 Calcium 9.2 mg/dL 8.4-10.4 18 Alkaline Phosphatase 55 U/L 10-118 18 Sgot (Ast) 14 U/L 3-40 18 SGPT (Alt) 14 U/L 7-50 18 Bilirubin, Total 0.60 mg/dL 0.30-1.20 18 Laboratory test finding 11/04/2013 Amylase 58 U/L 30-107 18 Egfr (Calculated) 11/04/2013 Estimated GFR (CALCULATED) 18 Egfr >60 18, 19 Egfr, -[place] >60 18, 20 Comprehensive Metabolic 09/05/2011 Glucose 107 mg/dL High 70-100 21 BUN 7 mg/dL 4-18 21 Creatinine, Serum 0.61 mg/dL 0.50-1.10 21 Sodium 139 mmol/L 136-146 21 Potassium 4.4 mmol/L 3.5-5.3 21 Chloride 103 mmol/L 98-110 21 Carbon Dioxide 30 mmol/L 20-32 21 Albumin 4.6 g/dL 3.5-4.7 21 Protein, Total 7.5 g/dL 6.4-8.3 21 Calcium 9.6 mg/dL 8.4-10.4 21 Alkaline Phosphatase 87 U/L 10-118 21 Sgot (Ast) 21 U/L 3-40 21 SGPT (Alt) 44 U/L 7-50 21 Bilirubin, Total 0.50 mg/dL 0.30-1.20 21 Egfr (Calculated) 09/05/2011 Estimated GFR (CALCULATED) 21 Egfr >60 21, 22 Egfr, -[place] >60 21, 23 Egfr (Calculated) 08/26/2011 Estimated GFR (CALCULATED) 24 Egfr >60 24, 25 Egfr, -[place] >60 24, 26 CMV Abs Igg/Igm 08/26/2011 CMV Ab, IgG 14.2 index High 0.0-0.8 24, 27 (Cytomegalovirus) CMV Ab, IgM Cytomegalovirus <0.9 index 0.0-0.8 24, 28 CBC 08/26/2011 WBC 4.5 x10E3/uL 4.3-10.9 24 RBC 4.63 x10E6/uL 3.80-5.30 24 Hemoglobin 12.8 g/dL 11.8-15.8 24 Hematocrit 38.3 % 35.0-47.0 24 MCV 82.7 fl 82.0-98.0 24 MCH 27.6 pg 27.5-33.5 24 MCHC 33.4 g/dL 32.0-36.0 24 RDW 12.8 % 11.5-14.5 24 Platelet Count 305 x10E3/uL 130-400 24 MPV 10.0 fl 6.5-10.5 24 Segmented Neutrophils 43.3 % Low 44.0-74.0 24 Lymphocytes 44.0 % 15.0-45.0 24 Monocytes 9.6 % 2.0-13.0 24 Eosinophils 2.2 % 0.0-6.0 24 Basophils 0.9 % 0.0-2.0 24 Neutrophil Absolute 1.9 x10E3/uL 1.4-7.0 24 Lymphocytes Absolute 2.0 x10E3/uL 1.0-3.4 24 Monocyte Absolute 0.4 x10E3/uL 0.2-1.0 24 Eosinophil Absolute 0.1 x10E3/uL 0.0-0.5 24 Basophil Absolute 0.0 x10E3/uL 0.0-0.2 24 Laboratory test finding 08/26/2011 Ferritin 296.9 ng/ml High 10.0-291.0 24 Iron 119 g/dL 30-158 24 Ceruloplasmin 55.8 mg/dL High 16.0-45.0 24 TSH (Thyrotropin) 1.210 uIU/ml 0.350-5.500 24 .Josefa W/Reflex If Positive Negative Negative 24 Amylase 50 U/L 30-107 24 Ebv Acute Infection Abs 08/26/2011 Ebv Ab Vca, IgM <0.2 AI 0.0-0.8 24, 29 Ebv Early Antigen Ab, IgG <0.2 AI 0.0-0.8 24, 30 Ebv Ab Vca, IgG >8.0 AI High 0.0-0.8 24, 31 Ebv Nuclear Antigen Ab, IgG >8.0 AI High 0.0-0.8 24, 32 Interpretation: SEE NOTE 24, 33 Comprehensive Metabolic 08/26/2011 Glucose 122 mg/dL High 70-100 24 BUN 9 mg/dL 4-18 24 Creatinine, Serum 0.72 mg/dL 0.50-1.10 24 Sodium 140 mmol/L 136-146 24 Potassium 4.3 mmol/L 3.5-5.3 24 Chloride 105 mmol/L 98-110 24 Carbon Dioxide 28 mmol/L 20-32 24 Albumin 4.3 g/dL 3.5-4.7 24 Protein, Total 7.2 g/dL 6.4-8.3 24 Calcium 9.2 mg/dL 8.4-10.4 24 Alkaline Phosphatase 109 U/L 10-118 24 Sgot (Ast) 113 U/L High 3-40 24 SGPT (Alt) 258 U/L High 7-50 24 Bilirubin, Total 0.40 mg/dL 0.30-1.20 24 Hepatitis Acute Panel 08/26/2011 Hep B Surface NON-REACTIVE Non-Reactive 24 Antigen Hep C Antibody NON-REACTIVE Non-Reactive 24 Hep C S/Co Ratio 0.0 0.0-0.7 24 Hep B Core Antibody Igm NON-REACTIVE Non-Reactive 24 Hep A Antibody Igm NON-REACTIVE Non-Reactive 24 Surgical Pathology 02/05/2010 Surgical <SEE 34 Pathology NOTE> Laboratory test 02/05/2010 Clotest NEGATIVE finding Laboratory test 11/09/2009 Amylase 39 U/L 30-107 35 finding Celiac Disease 11/09/2009 Deamidated 2 units 0-19 35, 36 Comp PNL Gliadin Abs, IgA Deamidated Gliadin Abs, IgG 3 units 0-19 35, 37 t-Transglutaminase (tTG) IgA 1 U/mL 0-3 35, 38 t-Transglutaminase (tTG) IgG 1 U/mL 0-5 35, 39 Endomysial Antibody IgA Negative Negative 35 Immunoglobulin A, Qn, Serum 127 mg/dL 70-400 35 Platelet Scan 10/07/2009 Platelet Scan PERFORMED 40 GFR Calculated 10/07/2009 GFR (Calculated) >60 40, 41 Microscopic, Reflex 10/07/2009 Microscopic, Reflex NOT INDICATED 40 Urinalysis W/ Micro 10/07/2009 Urine Color YELLOW Yellow 40 (CX) Urine Appearance CLEAR Clear 40 Urine Specific [place] 1.015 1.005-1.030 40 Urine Leukocytes NEGATIVE Negative 40 Urine Nitrite NEGATIVE Negative 40 Urine PH 5.5 5.0-8.0 40 Urine Protein NEGATIVE mg/dL Negative 40 Urine Glucose NEGATIVE mg/dL Negative 40 Urine Ketones NEGATIVE mg/dL Negative 40 Urine Urobilinogen NORMAL mg/dL Normal Or <1 40 Urine Bilirubin NEGATIVE Negative 40 Urine Occult Blood NEGATIVE Negative 40 Laboratory test finding 10/07/2009 TSH (Thyrotropin) 1.710 uIU/ml 0.350- 5.500 40 Comprehensive Metabolic 10/07/2009 Glucose 82 mg/dL 70-100 40 BUN 12 mg/dL 4-18 40 Creatinine, Serum 0.61 mg/dL 0.50-1.10 40 Sodium 139 mmol/L 136-146 40 Potassium 4.5 mmol/L 3.5-5.3 40 Chloride 103 mmol/L 98-110 40 Carbon Dioxide 29 mmol/L 20-32 40 Albumin 4.6 g/dL 3.5-4.7 40 Protein, Total 7.9 g/dL 6.4-8.3 40 Calcium 9.5 mg/dL 8.4-10.4 40 Alkaline Phosphatase 49 U/L 10-118 40 Sgot (Ast) 25 U/L 3-40 40 SGPT (Alt) 20 U/L 7-50 40 Bilirubin, Total 0.20 mg/dL Low 0.30-1.20 40 Laboratory test finding 10/07/2009 Amylase 59 U/L 30-107 40 Sedimentation Rate 4 MM/HR 0-20 40 CBC 10/07/2009 WBC 4.9 x10E3/uL 4.3-10.9 40 RBC 4.78 x10E6/uL 3.80-5.30 40 Hemoglobin 13.6 g/dL 11.8-15.8 40 Hematocrit 41.5 % 35.0-47.0 40 MCV 86.8 fl 82.0-98.0 40 MCH 28.5 pg 27.5-33.5 40 MCHC 32.8 g/dL 32.0-36.0 40 RDW 13.0 % 11.5-14.5 40 Platelet Count SEE COMMENT x10E3/uL 130-400 40, 42 Segmented Neutrophils 53.0 % 44.0-74.0 40 Band 0.0 % 0.0-4.0 40 Lymphocytes 37.0 % 15.0-45.0 40 Monocytes 6.0 % 2.0-13.0 40 Eosinophils 3.0 % 0.0-6.0 40 Basophils 1.0 % 0.0-2.0 40 Neutrophil Absolute 2.6 x10E3/uL 1.4-7.0 40 Lymphocytes Absolute 1.8 x10E3/uL 1.0-3.4 40 Monocyte Absolute 0.3 x10E3/uL 0.2-1.0 40 Eosinophil Absolute 0.1 x10E3/uL 0.0-0.5 40 Basophil Absolute 0.0 x10E3/uL 0.0-0.2 40 Platelet Clumps 2+ 40 H Pylori Igg, Iga, Igm 10/07/2009 H. pylori IgG, Abs 3.8 U/mL High 0.0- 0.8 40, 43 H. pylori, IgA Abs 1.08 index High 0.00-0.88 40, 44 H.pylori, IgM Abs <0.80 index 0.00-0.79 40, 45 Urine (Fma) 06/16/2009 SP Grav 1.015 Urine, (Fma/CMC/CTX) negative Ua - Non Micro (Fma) 12/09/2008 Appearance CLEAR Color YELLOW Glucose NEGATIVE Bilirubin NEGATIVE Ketones NEGATIVE SP Grav 1.020 Blood NEGATIVE PH 8.5 Protein NEGATIVE Urobil 0.2 EU/DL Nitrite NEGATIVE Leukocytes (Fma/CMC/Centrex) NEGATIVE Laboratory test finding 12/09/2008 Thin Prep W/HPV(Lsil/CLARITA/Asc) SEE NOTE 46 GC/Chlamydia Probe Or 12/09/2008 Chlamydia Amplified Probe NEGATIVE Urine(Centrex) GC Amplified Probe NEGATIVE Comprehensive Metabolic 12/02/2008 Glucose 80 mg/dL 70-100 47 BUN 11 mg/dL 4-18 47 Creatinine, Serum 0.54 mg/dL 0.50-1.10 47 Sodium 139 mmol/L 136-146 47 Potassium 4.1 mmol/L 3.5-5.3 47 Chloride 103 mmol/L 98-110 47 Carbon Dioxide 29 mmol/L 20-32 47 Albumin 4.2 g/dL 3.5-4.7 47 Protein, Total 7.0 g/dL 6.4-8.3 47 Calcium 8.7 mg/dL 8.4-10.4 47 Alkaline Phosphatase 60 U/L 10-118 47 Sgot (Ast) 12 U/L 3-40 47 SGPT (Alt) 14 U/L 7-50 47 Bilirubin, Total 0.30 mg/dL 0.30-1.20 47 CBC 12/02/2008 WBC 7.7 x103 4.3-10.9 47 RBC 4.73 x106 3.80-5.30 47 Hemoglobin 13.3 g/dL 11.8-15.8 47 Hematocrit 39.5 % 35.0-47.0 47 MCV 83.5 fl 82.0-98.0 47 MCH 28.1 pg 27.5-33.5 47 MCHC 33.7 g/dL 32.0-36.0 47 RDW 12.6 % 11.5-14.5 47 Platelet Count 312 x103 130-400 47 MPV 10.2 fl 6.5-10.5 47 Segmented Neutrophils 48.3 % 44.0-74.0 47 Lymphocytes 38.0 % 15.0-45.0 47 Monocytes 8.7 % 2.0-13.0 47 Eosinophils 4.2 % 0.0-6.0 47 Basophils 0.8 % 0.0-2.0 47 Neutrophil Absolute 3.7 x103 1.4-7.0 47 Lymphocytes Absolute 2.9 x103 1.0-3.4 47 Monocyte Absolute 0.7 x103 0.2-1.0 47 Eosinophil Absolute 0.3 x103 0.0-0.5 47 Basophil Absolute 0.1 x103 0.0-0.2 47 Laboratory test finding 12/02/2008 T-4 Free 1.1 ng/dL 0.8-1.8 47 TSH (Thyrotropin) 0.950 uIU/ml 0.350-5.500 47 GFR Calculated 12/02/2008 GFR (Calculated) >60 47, 48 1 1 sst 2 Cryptoanalysis Teacher: DALLIN Luna 3 Cryptoanalysis Teacher: BOOM HAN If is still suspected, please repeat test after 48 to 72 hours. 4 Cryptoanalysis Teacher: [id number] HAN 5 According to ATP-III Guidelines, HDL-C >59 mg/dL is considered a negative risk factor for CHD. 6 NEGATIVE FOR INTRAEPITHELIAL LESION AND MALIGNANCY. 7 Satisfactory for evaluation. Endocervical and/or squamous metaplastic cells (endocervical component) are present. 8 Z12.4 9 Amalia Zavala Radiochemical Technician (ASCP) 10 The Pap smear is a screening test designed to aid in the detection of premalignant and malignant conditions of the uterine cervix. It is not a diagnostic procedure and should not be used as the sole means of detecting cervical cancer. Both false-positive and false-negative reports do occur. 11 This liquid based ThinPrep(R) pap test was screened with the use of an image guided system. 12 This high-risk HPV test detects thirteen high-risk types (16/18/31/33/35/39/45/51/52/56/58/59/68) without differentiation. 13 SRC:clean catch 1 hung tub e 14 Source of Specimen: clean catch 1 hung tub 15 Escherichia coli Source of Specimen: clean catch 1 hung tub Greater than 100,000 colony forming units per mL 16 Source of Specimen: clean catch 1 hung tub S=Susceptible; I=Intermediate; R=Resistant P=Positive; N=Negative MICS are expressed in micrograms per mL Antibiotic RSLT#1 RSLT#2 RSLT#3 RSLT#4 Amoxicillin/Clavulanic Acid S Ampicillin S Cefepime S Ceftriaxone S Cefuroxime S Cephalothin S Ciprofloxacin S Ertapenem S Gentamicin S Imipenem S Levofloxacin S Nitrofurantoin S Piperacillin S Tetracycline S Tobramycin S Trimethoprim/Sulfa S 17 Test Performed by: [address] [address] Suture Polisher: Cristian Hadley III, M.D. 18 1 SST; 1 LAV 19 >59 mL/min/1.73m2 20 >59 mL/min/1.73m2 Note: Persistent reduction for 3 months or more in an eGFR <60 mL/min/1.73m2 defines CKD. Patients with eGFR values >=60 mL/min/1.73m2 may also have CKD if evidence of persistent proteinuria is present. Additional information may be found at [email or web address]. 21 1SST 22 >59 mL/min/1.73m2 23 >59 mL/min/1.73m2 Note: Persistent reduction for 3 months or more in an eGFR <60 mL/min/1.73m2 defines CKD. Patients with eGFR values >=60 mL/min/1.73m2 may also have CKD if evidence of persistent proteinuria is present. Additional information may be found at [email or web address]. 24 4 SST; 1 LAV 25 >59 mL/min/1.73m2 26 >59 mL/min/1.73m2 Note: Persistent reduction for 3 months or more in an eGFR <60 mL/min/1.73m2 defines CKD. Patients with eGFR values >=60 mL/min/1.73m2 may also have CKD if evidence of persistent proteinuria is present. Additional information may be found at [email or web address]. 27 Negative <0.9 Equivocal 0.9 - 1.0 Positive >1.0 28 Negative <0.9 Equivocal 0.9 - 1.0 Positive >1.0 29 Negative <0.9 Equivocal 0.9 - 1.0 Positive >1.0 30 Negative <0.9 Equivocal 0.9 - 1.0 Positive >1.0 31 Negative <0.9 Equivocal 0.9 - 1.0 Positive >1.0 32 Negative <0.9 Equivocal 0.9 - 1.0 Positive >1.0 33 EBV Interpretation Chart . Interpretation VCA-IgM EA-IgG VCA-IgG NA-ABS . Susceptible - - - - Acute Infection + +or- +or- - Convalescent Phase +or- +or- + + Chronic or Reactivated - + + +or- Old Infection - - +or- + + Antibody Present - Antibody Absent 34 ---- RUN DATE: 02/09/10 [facility] NMI LIVE PAGE 1 RUN TIME: 1646 Specimen Inquiry RUN USER: INTERFACE -- Name: SEJAL GUZMAN Acctorito#: [id number] Status: REG REF Re02/05/10 Age/Sex: 29/F Unit#: [id number] Location: [facility]. : [birth year] -- Specimen: [id number] SOUT Spec Date: 02/05/[address]: Augustine allred MD Spec Type: SURGICAL P Received: 02/05/10-1253 Copies to: Delgado nguyen MD SPECIMEN 1) BIOPSY DUODENUM 2) GASTRIC BIOPSY HISTORY POST-OP DIAGNOSIS: EGD - normal CLINICAL INFORMATION: Abdominal pain, positive Helicobacter pylori GROSS DESCRIPTION 1) The specimen is received in formalin labelled Sejal Christen, Biopsy Duodenum, and consists of one fragment of yellow tissue measuring 0.3 x 0.2 x 0.2 cm. Submitted entirely, one cassette labelled 1. 2) The specimen is received in formalin labelled Sejal Christen, Biopsy Gastric, and consists of two fragments of yellow tissue each measuring 0.2 x 0.2 x 0.2 cm. Submitted entirely, one cassette labelled 2. DIAGNOSIS 1) Small bowel, duodenum, biopsy: Small bowel mucosa with normal villous architecture and no significant pathologic abnormality. 2) Stomach, biopsy: A. Chronic gastritis with lymphoid follicle formation and focal activity. B. No Helicobacter pylori-like organisms are identified. C. No evidence of neoplasia is identified. COMMENT An immunohistochemical stain performed with appropriate controls for Helicobacter pylori-like organisms was performed on part 2 and is negative. Signed Electronically by: JOSÉ LUIS MCNEAL MD 02/09/10 5502 -- DEPARTMENT OF PATHOLOGY, [address] [place] [address] [facility] Permit #[id number] José Luis Mcneal M.D. Director Fany Rodríguez M.D. Compliance Tester Dir kirsty -- 35 FASTING; 3 SST 36 Negative 0 - 19 Weak Positive 20 - 30 Moderate to Strong Positive >30 Please note reference interval change 37 Negative 0 - 19 Weak Positive 20 - 30 Moderate to Strong Positive >30 Please note reference interval change 38 Negative 0 - 3 Weak Positive 4 - 10 Positive >10 . Tissue Transglutaminase (tTG) has been identified as the endomysial antigen. Studies have demonstr- ated that endomysial IgA antibodies have over 99% specificity for gluten sensitive enteropathy. 39 Negative 0 - 5 Weak Positive 6 - 9 Positive >9 40 3 SST; 1 PURPLE TOP TUBE; 1 URINE CONTAINER WITH URINE 41 mL/min/1.73m2 . Normal Function or Mild Renal Disease, if clinically at risk: >or=60 Moderately decreased: 30 - 59 Severely decreased: 15 - 29 Renal Failure: <15 . Please note that the MDRD equation requires an additional adjustment for -Americans (multiply the GFR result by 1.210). . Glomerular Filtration Rate (GFR) is estimated based on the MDRD equation, which assumes a steady state for creatinine (Mayelin Int Med 139/2 137-149, 2003), as recommended by the National Kidney Disease Education Program in conjunction with the National Institutes of Health and the National Kidney Foundation. . Clinical conditions in which it may be necessary to measure GFR by using clearance methods include extremes of age and body size, severe malnutrition or obesity, diseases of skeletal muscle, paraplegia or quadriplegia, vegetarian diet, rapidly changing kidney function, and calculation of the dose of potentially toxic drugs that are excreted by the kidneys. 42 (Unable to give Plt count due to Plt clumping.) 43 Negative <0.9 Indeterminate 0.9 - 1.0 Positive >1.0 44 Negative <0.89 Equivocal 0.89 - 0.99 Positive >0.99 45 Negative <0.80 Equivocal 0.80 - 1.19 Positive >1.19 . Current studies suggest that H. pylori IgM testing should be performed concomitantly with H. pylori IgA and/or IgG tests to support a diagnosis of Helicobacter pylori infection. . For research use only, not for use in clinical diagnostic procedures. [address] [employer] DEPARTMENT OF PATHOLOGY or Extension 8244 HEALTH CARE ADMINISTRATOR CYTOLOGY REPORT PATIENT: SEJAL GUZMAN : 1980 AGE: 28 Y SEX: F ACCT: [id number] PROCEDURE DATE: 12/09/2008 DATE RECEIVED: 12/10/2008 REQUESTING PHYSICIAN: JESUSITA ANN NP LOCATION: [facility] Case No. [id number] PATIENT DATA: [id number] SPECIMEN SUBMITTED: * * (HPVII) THIN PREP W/HPV (LSIL/ASC/CLARITA) * * ENDOCERVICAL RELEVANT HISTORY: LMP: 10/31/2008 SPECIMEN ADEQUACY SATISFACTORY FOR EVALUATION, ENDOCERVICAL TRANSFORMATION ZONE COMPONENT PRESENT GENERAL CATEGORIZATION NEGATIVE FOR INTRAEPITHELIAL LESIONS OR MALIGNANCY ADDITIONAL COPIES SENT TO: Screened/Rescreened by: Electronically Signed by: [email or web address] SWATI LYNCH(ASCP) Signed Date and Time: 12/11/2008 14:11 Thin Prep Pap tests are examined with an FDA-approved location-guidance system (76256). Performed @ [employer] [employer] [address] [place] [address] "" 47 2 SST, 1 LAVENDAR TOP TUBE 48 mL/min/1.73m2 . Normal Function or Mild Renal Disease, if clinically at risk: >or=60 Moderately decreased: 30 - 59 Severely decreased: 15 - 29 Renal Failure: <15 . Please note that the MDRD equation requires an additional adjustment for -Americans (multiply the GFR result by 1.210). . Glomerular Filtration Rate (GFR) is estimated based on the MDRD equation, which assumes a steady state for creatinine (Mayelin Int Med 139/2 137-149, 2003), as recommended by the National Kidney Disease Education Program in conjunction with the National Institutes of Health and the National Kidney Foundation. . Clinical conditions in which it may be necessary to measure GFR by using clearance methods include extremes of age and body size, severe malnutrition or obesity, diseases of skeletal muscle, paraplegia or quadriplegia, vegetarian diet, rapidly changing kidney function, and calculation of the dose of potentially toxic drugs that are excreted by the kidneys. Procedures Date CPT Code Description Status 12/02/2008 19725 Electrocardiogram Tracing Completed 12/02/2008 68198 Electrocardiogram Complete Completed Encounters Type Date Location Provider CPT E/M Dx Office Visit 05/23/2016 3:20p Main Office Mario Swanson 83528 R10.13 Jarret Office Visit 05/12/2016 3:30p [facility] NICKIE Shah 94238 R10.13 Office Visit 05/22/2015 10:00a [place] [address] Z01.419 Z30.8 R10.13 Office Visit 05/13/2015 2:45p Main Office Vijay Nicholas 81371 N39.0 Office Visit 02/24/2014 3:40p Main Office Mario Swanson M.D. 15249 789.06 Office Visit 11/27/2013 2:10p Main Office Mario Swanson M.D. 83492 789.06 Office Visit 11/04/2013 10:10a Main Office Mario Swanson M.D. 41670 789.06 Office Visit 01/23/2012 1:00p [facility] Delgado Mclean M.D. 11898 724.4 Office Visit 11/23/2011 10:50a [facility] Office Delgado Mclean M.D. 67857 724.4 Office Visit 09/05/2011 2:50p [facility] Delgado Mclean M.D. 60001 573.3 535.40 Office Visit 08/29/2011 1:20p [facility] Office Delgado Mclean M.D. 91399 789.06 573.3 535.40 Office Visit 08/25/2011 4:20p Main Office Delgado Mclean M.D. 87262 573.3 789.06 Office Visit 07/20/2011 7:40p Main Office Fang Chanel M.D. 21282 723.1 Office Visit 07/04/2011 2:10p [facility] Fang Chanel M.D. 55219 683 Office Visit 02/15/2011 10:30a [facility] Jesusita ChonJohnson soares-Jamar 31063 724.4 Office Visit 02/07/2011 11:30a Main Office Jesusita ChonJohnson soares-Jamar 25701 724.2 Office Visit 11/02/2010 9:20a [facility] Office Delgado Mclean M.D. 10096 296.31 780.52 Office Visit 08/02/2010 10:00a [facility] Office Delgado Mclean M.D. 85163 296.31 V25.01 Office Visit 06/28/2010 8:30a [facility] Office Delgado Mclean M.D. 80502 296.31 536.8 Office Visit 05/25/2010 2:40p [facility] Office Delgado Mclean M.D. 83723 296.31 Office Visit 12/21/2009 9:40a [facility] Office Delgado Mclean M.D. 37174 536.8 Office Visit 11/09/2009 9:40a [facility] Delgado Mclean M.D. 24273 789.06 Office Visit 10/20/2009 10:40a [facility] Delgado Mclean M.D. 16134 789.06 Office Visit 10/07/2009 1:30p [facility] Office Delgado Mclean M.D. 12298 789.06 780.79 386.10 Office Visit 06/16/2009 1:45p [facility] Jesusita ChonJohnson soares-C 50109 V25.01 626.8 Office Visit 03/17/2009 1:00p [facility] Jesusita ChonJohnson soares-Jamar 53479 311 V25.01 Office Visit 03/02/2009 10:00a Main Office Mario Swanson M.D. 77641 311 Office Visit 02/05/2009 9:40a Main Office Mario Swanson M.D. 90327 311 Office Visit 12/09/2008 2:30p [facility] Office Jesusita ChonJohnson soares-C 45484 V72.31 780.4 V76.2 V73.98 V25.01 Office Visit 12/02/2008 2:00p [facility] Office Jesusita Ann Alldolly-C 54254 780.4 Plan of Care 09/26/2017 - Manuela Callejas, NPK64.9 Unspecified hemorrhoidsComments: referral to surgical associates to discuss removal of hemorrhoidsWill need records from OBGYN to determine if worsening or improving.H66.92 Otitis media, unspecified, left earNew Medication:Cefdinir 300 mgComments:Medication is safe with breast feedingreturn if worsening condition or failure to improve.AllComments:~B_~U_Medication Management~b_~u_ Patient Understands medications she's taking? Yes No Are there Barriers to Adherence? Yes No Has the patient been asked about herbal supplements and therapies, and OTC meds? Yes No ~B_~U_Care Plan~b_~u_1. Patient has been queried about patient's goals/preferences and functional/lifestyle goals at relevant visits. If relevant, describe: na2. Treatment goals as explained to the patient: above3. Are there barriers to meeting treatment goals? Yes No If Yes, please describe:4. Self-Management goals as described to the patient: Yes NoFollow up:As always, we strongly encourage a healthy diet and making physical activity a part of your every day life. If you have questions about how or where to start, please contact the office. Please schedule a full preventative well visit at your earliest convenience
--- NOTE | 2017-10-23 18:57 | UC ---
Headache HPI - HPI Summary HPI Summary: Pt is a 37 year old female presenting to the with a chief complaint of a headache and a fever. The pt is currently and wants to know if she can take any medication. She started feeling sick around last night, with chills and body aches. This morning, she had a fever of 101. Presently, the pt reports a headache on both sides of her posterior head, and bilateral knee pain. The pt also reports that she had L ear pain a couple of weeks ago but it does not bother her anymore. She denies any cough, neck pain, vomiting, other changes to her arms and legs, any pain with deep breathing, pain or burning on urination, rashes, and abdominal pain. She noted that her child had some congestion last week. - History Of Current Complaint Chief Complaint: UCHeadache Stated Complaint: FEVER Hx Obtained From: Patient Hx Last Menstrual Period: unknown- breast feeding ?: No Onset/Duration: Sudden Onset, Lasting Hours - body pain since last night, fever since this morning Onset Of Symptoms: Gradual, Still Present Initially Headache Was: Mild Currently Pain Is: Moderate Pain Intensity: 7 Pain Scale Used: 0-10 Numeric Timing: Constant Character: Typical Headache Location of Headache: Temporal, Occipital Aggravating Factor(s): Exertion Allevating Factor(s): Rest Associated Signs And Symptoms: Positive: Fever, Other (Noted In Comments) - knee pain. Negative: Vomiting, Neck Pain - Allergies/Home Medications Allergies/Adverse Reactions: Allergies Allergy/AdvReac Type Severity Reaction Status Date / Time amoxicillin [From Augmentin] Allergy See Comment Verified 10/23/17 21:01 clarithromycin Allergy Unknown Verified 10/23/17 21:01 Reaction Details clavulanic acid Allergy See Comment Verified 10/23/17 21:01 [From Augmentin] Home Medications: Home Medications NK [No Home Medications Reported] 10/23/17 [History Confirmed 10/23/17] PMH/Surg Hx/FS Hx/Imm Hx Previously Healthy: Yes Cardiovascular History: Hypertension - negative Respiratory History: COPD - negative - Surgical History Surgical History: Yes Surgery Procedure, Year, and Place: wisdom teeth extraced - Family History Known Family History: Positive: Diabetes, Other - POS: brain CA - Social History Alcohol Use: None Substance Use Type: None Smoking Status (MU): Never Smoked Tobacco Have You Smoked in the Last Year: No - Immunization History Most Recent Influenza Vaccination: 11/2016 Most Recent Pneumonia Vaccination: never Review of Systems Constitutional: Fever, Chills Skin: Negative - rashes ENT: Negative - ear pain Respiratory: Negative - cough, pain with deep breathing Gastrointestinal: Negative - abd pain, vomiting Genitourinary: Negative - any urination problems Musculoskeletal: Other: - bilateral knee pain Neurological: Headache All Other Systems Reviewed And Are Negative: Yes Physical Exam - Summary Physical Exam Summary: Appearance: Well-appearing, Well-nourished Skin: Warm, no rashes. Eyes: Normal ENT: Normal TMs bilaterally. Neck: Supple, nontender, no cervical lymphadenectomy Respiratory: Clear to auscultation Cardiovascular: Normal S1, S2. No murmurs. Normal distal pulses in tibial and radial bilaterally. Abdomen: Soft, nontender Musculoskeletal: Normal, Strength/ROM Intact Neurological: Normal, A&Ox3 Psychiatric: Normal General: No acute distress Triage Information Reviewed: Yes Vital Signs: Initial Vital Signs Temp 99.9 F 10/23/17 18:00 Pulse 104 10/23/17 18:00 Resp 18 10/23/17 18:00 BP 107/60 10/23/17 18:00 Pulse Ox 98 10/23/17 18:00 Vital Signs Reviewed: Yes Diagnostics - Radiology No standard instances Xray Interpretation: Positive (See Comments) - Mild haziness at the L base, not a definitive consolidation. Radiology Interpretation Completed By: ED Physician - Results have not yet been reviewed by radiologist. Headache Course/Dx - Course Course Of Treatment: Patient seen to be persistently tachycardic and febrile during course here, no definitive sources of infection on initial workup. I Instructed the patient to report to the emergency department for further workup. Normal mentation, patient has a ride to emergency department - Differential Dx/Diagnosis Provider Diagnoses: Fever Discharge - Sign-Out/Discharge Documenting (check all that apply): Patient Departure All imaging exams completed and their final reports reviewed: Yes - Discharge Plan Condition: Stable Disposition: HOME-RECOMMEND TO ED Patient Education Materials: Fever in Adults (ED) Referrals: Mario Swanson MD [Primary Care Provider] - Additional Instructions: PLEASE GO DIRECTLY TO EMERGENCY DEPARTMENT AT [facility] - Billing Disposition and Condition Condition: STABLE Disposition: Home-Recommend to ED - Attestation Statements Document Initiated by Scribe: Yes Documenting Scribe: Mayte Fuentes Provider For Whom La is Documenting (Include Credential): Pro Lopez MD. Scribe Attestation: I, Mayte Fuentes, scribed for Pro Lopez MD. on 10/23/17 at 2302. Scribe Documentation Reviewed: Yes Provider Attestation: The documentation as recorded by the Mayte rivera accurately reflects the service I personally performed and the decisions made by me, Pro Lopez MD. Consult Consult: 2030 - Spoke with Kendra Callahan about transferring pt to [facility] ED, they will be accepting her there.
[2017-10-23] MEDS ORDERED: Ibuprofen TAB* 400 MG PO ONE (20:00)
[2017-10-23 20:07] VITALS: BP 115/79
[2017-10-23] MEDS ORDERED: NS 0.9% 1000 ML* 1,000 ML IV ONE (20:13)
[2017-10-23] MEDS ORDERED: cefTRIAXone(*) 1 GM in NS 0.9% 50 ML* 50 ML IVPB ONE (20:14)
--- NOTE | 2017-10-24 07:50 | RAD ---
INDICATION: Fever COMPARISON: None TECHNIQUE: PA and lateral dual-energy views were obtained. FINDINGS: Bones/Soft Tissues: There are no acute bony findings. Cardiomediastinal: The cardiomediastinal silhouette is normal. Lungs: There is a small infiltrate in the lingular segment with early consolidation. The remaining lung bains are clear Pleura: There are no pleural effusions. Other: None IMPRESSION: SMALL LEFT-SIDED INFILTRATE R1 Findings called to the urgent care Center on October 24, 2017 at 0745 hours.
--- NOTE | 2017-10-24 09:19 | UC ---
- Progress Note Progress Note: PLS CALL PT. CXR WITH LEFT LOWER LOBE INFILTRATE. WILL TX FOR PNA WITH LEVO 750MG DAILY X 7 DAYS. ERX SENT TO [facility] IN [place]. OKAY IN . STAY WELL HYDRATED. F/U PCP. TO ED IF SX WORSEN. WILL NEED REPEAT CXR IN 4-6 WEEKS TO DOCUMENT RESOLUTION. - JUAN CARLOS KAY MD Discharge - Sign-Out/Discharge Documenting (check all that apply): Post-Discharge Follow Up All imaging exams completed and their final reports reviewed: Yes - Discharge Plan Condition: Stable Disposition: HOME-RECOMMEND TO ED Prescriptions: levoFLOXacin [Levofloxacin] 750 mg PO DAILY #7 tablet Patient Education Materials: Fever in Adults (ED) Referrals: Mario Swanson MD [Primary Care Provider] - Additional Instructions: PLEASE GO DIRECTLY TO EMERGENCY DEPARTMENT AT [facility] [place] - Billing Disposition and Condition Condition: STABLE Disposition: Home-Recommend to ED
== END 2017-10-23 20:15 | disposition home health service (06) ==
LOC: UCEAST 17:45
DX: R50.9 Fever, unspecified (principal); R51 Headache; Z88.0 Allergy status to penicillin; Z88.1 Allergy status to other antibiotic agents; R00.0 Tachycardia, unspecified; M25.562 Pain in left knee; M25.561 Pain in right knee
CPT/HCPCS: 71046; 81003; 84702; 87086; 99212; A9270-GY; G0463; J0696

== ENCOUNTER 2017-10-23 21:22 | Emergency (ER) | payer BC, OTHER ==
[2017-10-23] MEDS ORDERED: NS 0.9% 1000 ML* 1,000 ML IV ONE (21:42)
[2017-10-23 22:07] LABS: ABS Basophils 0.1 10^3/ul (0-0.2); ABS Eosinophils 0 10^3/ul (0-0.6); ABS Lymphocytes 1.5 10^3/ul (1.0-4.8); ABS Monocytes 0.6 10^3/ul (0-0.8); ABS Neutrophils 4.5 10^3/ul (1.5-7.7); ABS Nucleated RBC 0 10^3/ul; Eosinophil % 0.2 % (0-6); Hematocrit 39 % (35-47); Hemoglobin 13.5 g/dl (12.0-16.0); Lymphocyte % 22.1 % (25-47); Mean Corpuscular HGB Conc 34 g/dl (31-36); Mean Corpuscular Hemoglobin 29 pg (27-31); Mean Corpuscular Volume 85 fL (80-97); Mean Platelet Volume 7.2 um3 (7.4-10.4); Nucleated Red Blood Cells % 0.1; Platelet Count 248 10^3/ul (150-450); Red Cell Distribution Width 14 % (10.5-15); White Blood Count 6.7 10^3/ul (3.5-10.8)
[2017-10-23 22:22] LABS: EGFR Non-African American 117.6 (>60)
--- NOTE | 2017-10-23 23:15 | ED ---
HPI Febrile Illness - HPI Summary HPI Summary: 37-year-old female presents with a fever today. She states that she's been sick with chills and body aches. She did not take anything for her fever. She states she did have a headache that has since resolved since she was given ibuprofen at urgent care. Denies any sore throat or ear pain. No cough. No chest pressures or shortness of breath. No bowel pain. No nausea no vomiting or diarrhea. She states that her child that has some congestion last week. The child saw her primary today and told everything was fine. She denies any neck pain or photophobia. - History of Current Complaint Chief Complaint: EDFever Time Seen by Provider: 10/23/17 21:38 Hx Last Menstrual Period: unknown- breast feeding Pain Intensity: 0 - Allergy/Home Medications Allergies/Adverse Reactions: Allergies Allergy/AdvReac Type Severity Reaction Status Date / Time amoxicillin [From Augmentin] Allergy See Comment Verified 10/23/17 21:01 clarithromycin Allergy Unknown Verified 10/23/17 21:01 Reaction Details clavulanic acid Allergy See Comment Verified 10/23/17 21:01 [From Augmentin] PMH/Surg Hx/FS Hx/Imm Hx Endocrine/Hematology History: Denies: Hx Diabetes, Hx Thyroid Disease Cardiovascular History: Denies: Hx Hypercholesterolemia, Hx Hypertension, Hx Peripheral Vascular Disease Respiratory History: Denies: Hx Asthma, Hx Chronic Obstructive Pulmonary Disease (COPD) GI History: Denies: Hx Ulcer Musculoskeletal History: Denies: Hx Arthritis, Hx Osteoporosis Sensory History: Denies: Hx Cataracts, Hx Contacts or Glasses, Hx Glaucoma Opthamlomology History: Denies: Hx Cataracts, Hx Contacts or Glasses, Hx Glaucoma Neurological History: Reports: Hx Headaches Denies: Hx Seizures, Hx Transient Ischemic Attacks (TIA) Psychiatric History: Denies: Hx Anxiety, Hx Depression - Surgical History Surgery Procedure, Year, and Place: wisdom teeth extraced Infectious Disease History: No Infectious Disease History: 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" Denies: Hx Clostridium Difficile, Hx Human Immunodeficiency Virus (HIV), Hx of Known/Suspected MRSA, Hx Shingles, Hx Tuberculosis, Hx Known/Suspected VRE, Hx Known/Suspected VRSA, History Other Infectious Disease, Traveled Outside the [place] in Last 30 Days - Family History Known Family History: Positive: Diabetes, Other - POS: brain CA - Social History Alcohol Use: None Substance Use Type: Reports: None Hx Tobacco Use: No Smoking Status (MU): Never Smoked Tobacco Have You Smoked in the Last Year: No Review of Systems Positive: Fever, Chills Negative: Chest Pain Negative: Shortness Of Breath, Cough Negative: Abdominal Pain All Other Systems Reviewed And Are Negative: Yes Physical Exam Triage Information Reviewed: Yes Vital Signs On Initial Exam: Initial Vitals Temp Pulse Resp BP Pulse Ox 98.0 F 88 16 114/79 97 10/23/17 21:24 10/23/17 21:24 10/23/17 21:24 10/23/17 21:24 10/23/17 21:24 Vital Signs Reviewed: Yes Appearance: Positive: Well-Appearing Skin: Positive: Warm, Dry Head/Face: Positive: Normal Head/Face Inspection Eyes: Positive: Normal, EOMI, TIAGO, Conjunctiva Clear ENT: Positive: Normal ENT inspection, Pharynx normal, TMs normal Neck: Positive: Supple, Nontender, No Lymphadenopathy. Negative: Nuchal Rigidity Respiratory/Lung Sounds: Positive: Clear to Auscultation, Breath Sounds Present Cardiovascular: Positive: Normal, RRR Abdomen Description: Positive: Nontender, Soft Bowel Sounds: Positive: Present Musculoskeletal: Positive: Normal Neurological: Positive: Normal Psychiatric: Positive: Normal Diagnostics - Vital Signs Vital Signs Temp Pulse Resp BP Pulse Ox 10/23/17 21:24 98.0 F 88 16 114/79 97 - Laboratory Lab Results: Lab Results 10/23/17 10/23/17 10/23/17 Range/Units 21:53 21:53 21:53 WBC 6.7 (3.5-10.8) 10^3/ul RBC 4.60 (4.00-5.40) 10^6/ul Hgb 13.5 (12.0-16.0) g/dl Hct 39 (35-47) % MCV 85 (80-97) fL MCH 29 (27-31) pg MCHC 34 (31-36) g/dl RDW 14 (10.5-15) % Plt Count 248 (150-450) 10^3/ul MPV 7.2 L (7.4-10.4) um3 Neut % (Auto) 67.9 (38-83) % Lymph % (Auto) 22.1 L (25-47) % Forrest % (Auto) 8.9 H (0-7) % Eos % (Auto) 0.2 (0-6) % Baso % (Auto) 0.9 (0-2) % Absolute Neuts (auto) 4.5 (1.5-7.7) 10^3/ul Absolute Lymphs (auto) 1.5 (1.0-4.8) 10^3/ul Absolute Monos (auto) 0.6 (0-0.8) 10^3/ul Absolute Eos (auto) 0 (0-0.6) 10^3/ul Absolute Basos (auto) 0.1 (0-0.2) 10^3/ul Absolute Nucleated RBC 0 10^3/ul Nucleated RBC % 0.1 Sodium 135 (135-145) mmol/L Potassium 3.6 (3.5-5.0) mmol/L Chloride 102 (101-111) mmol/L Carbon Dioxide 25 (22-32) mmol/L Anion Gap 8 (2-11) mmol/L BUN 8 (6-24) mg/dL Creatinine 0.58 (0.51-0.95) mg/dL Est GFR ( Amer) 142.3 (>60) Est GFR (Non-Af Amer) 117.6 (>60) BUN/Creatinine Ratio 13.8 (8-20) Glucose 110 H (70-100) mg/dL Lactic Acid 0.7 (0.5-2.0) mmol/L Calcium 8.9 (8.6-10.3) mg/dL Total Bilirubin 0.50 (0.2-1.0) mg/dL AST 14 (13-39) U/L ALT 12 (7-52) U/L Alkaline Phosphatase 86 (34-104) U/L Total Protein 7.4 (6.4-8.9) g/dL Albumin 4.3 (3.2-5.2) g/dL Globulin 3.1 (2-4) g/dL Albumin/Globulin Ratio 1.4 (1-3) Result Diagrams: 10/23/17 21:53 10/23/17 21:53 Lab Statement: Any lab studies that have been ordered have been reviewed, and results considered in the medical decision making process. Course/Dx - Course Course Of Treatment: 37-year-old female presents with a fever today. She states that she's been sick with chills and body aches. She did not take anything for her fever. She states she did have a headache that has since resolved since she was given ibuprofen at urgent care. Denies any sore throat or ear pain. No cough. No chest pressures or shortness of breath. No bowel pain. No nausea no vomiting or diarrhea. She states that her child that has some congestion last week. The child saw her primary today and told everything was fine. She denies any neck pain or photophobia. On exam appears well. Lungs clear to auscultation. Pharynx normal. Abdomen soft nontender. wnbc normal. electrolytes normal. X-rays normal. Gave fluids and feeling better. Told to continue taking Tylenol ibuprofen. Patient understands the plan. - Febrile Illness Differential Diagnoses: Pneumonia, Pyelonephritis, Sepsis, Viremia - Diagnoses Provider Diagnoses: Fever Discharge - Sign-Out/Discharge Documenting (check all that apply): Patient Departure - Discharge Plan Condition: Good Disposition: HOME Patient Education Materials: Viral Syndrome (ED) Referrals: Mario Swanson MD [Primary Care Provider] - Additional Instructions: symptoms likely due to viral syndrome Alternate Tylenol and ibuprofen every 6 hours drink plenty of fluids Follow up with primary within 5 days Return to ED if develop any new or worsening symptoms - Billing Disposition and Condition Condition: GOOD Disposition: Home
[2017-10-23 23:43] LABS: Urine Appearance Clear; Urine Blood 1+ (Negative); Urine Color Straw; Urine Ketones Trace (Negative); Urine Protein Negative (Negative); Urine Red Blood Cell Absent (Absent); Urine Specific Gravity 1.004 (1.010-1.030); Urine Urobilinogen Negative (Negative); Urine White Blood Cell Trace(0-5/hpf) (Absent)
[2017-10-24 00:12] VITALS: BP 103/73
== END 2017-10-24 00:11 | disposition home or self-care (01) ==
LOC: ED 21:22
DX: R50.9 Fever, unspecified (principal); Z88.0 Allergy status to penicillin
CPT/HCPCS: 36415; 80053; 81003; 81015; 83605; 85025; 87040; 99282

== ENCOUNTER → 2017-10-26 12:08 | Emergency (ER) | payer BC ==
[~2017-10-26 12:08] MED LIST: NS 0.9% 1000 ML* 1,000 ML IV ONE
--- NOTE | 2017-10-26 12:52 | ED ---
Shortness of Breath - HPI Summary HPI Summary: 37 y/o female presents to ED c/o difficulty breathing for several days. SOB at rest. Currently being treated for PNA. Sx not alleviated by anything. Pt also c/ o nausea and [place] today, still present. Associated sx: cough, chills. Pt dx PNA at Urgent Care, started medication 2 days ago. Pt had a baby in January 2018. Pt called PCP today and pt referred to ED. - History of Current Complaint Chief Complaint: EDShortnessOfBreath Hx Obtained From: Patient Onset/Duration: Lasting Hours Aggrevating Factors: Nothing Alleviating Factors: Nothing Associated Signs & Symptoms: Cough (Nonproductive), Chills - Allergy/Home Medications Allergies/Adverse Reactions: Allergies Allergy/AdvReac Type Severity Reaction Status Date / Time amoxicillin [From Augmentin] Allergy See Comment Verified 10/23/17 21:01 clarithromycin Allergy Unknown Verified 10/23/17 21:01 Reaction Details clavulanic acid Allergy See Comment Verified 10/23/17 21:01 [From Augmentin] PMH/Surg Hx/FS Hx/Imm Hx Previously Healthy: No Endocrine/Hematology History: Denies: Hx Diabetes, Hx Thyroid Disease Cardiovascular History: Denies: Hx Hypercholesterolemia, Hx Hypertension, Hx Peripheral Vascular Disease Respiratory History: Denies: Hx Asthma, Hx Chronic Obstructive Pulmonary Disease (COPD) GI History: Denies: Hx Ulcer Musculoskeletal History: Denies: Hx Arthritis, Hx Osteoporosis Sensory History: Denies: Hx Cataracts, Hx Contacts or Glasses, Hx Glaucoma Opthamlomology History: Denies: Hx Cataracts, Hx Contacts or Glasses, Hx Glaucoma Neurological History: Reports: Hx Headaches Denies: Hx Seizures, Hx Transient Ischemic Attacks (TIA) Psychiatric History: Denies: Hx Anxiety, Hx Depression - Surgical History Surgery Procedure, Year, and Place: wisdom teeth extraced Infectious Disease History: 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" Denies: Hx Clostridium Difficile, Hx Human Immunodeficiency Virus (HIV), Hx of Known/Suspected MRSA, Hx Shingles, Hx Tuberculosis, Hx Known/Suspected VRE, Hx Known/Suspected VRSA, History Other Infectious Disease, Traveled Outside the [place] in Last 30 Days - Family History Known Family History: Positive: Diabetes, Other - POS: brain CA - Social History Alcohol Use: None Substance Use Type: Reports: None Hx Tobacco Use: No Smoking Status (MU): Never Smoked Tobacco Have You Smoked in the Last Year: No Review of Systems Positive: Chills Eyes: Negative ENT: Negative Cardiovascular: Negative Positive: Shortness Of Breath, Cough Positive: Nausea Genitourinary: Negative Musculoskeletal: Negative Skin: Negative Positive: Headache Psychological: Normal All Other Systems Reviewed And Are Negative: No Physical Exam - Summary Physical Exam Summary: Appearance: Alert, conversive, nontoxic appearing Skin: Warm, dry, no mottling, no rashes, no contusions HEENT: EOMI, PERRL, moist mucous membranes Neck: No masses on the neck, supple Respiratory: Clear to auscultation, breath sounds present, no rales, no rhonchi , no wheezes Cardiovascular: RRR, pulses are symmetrical in both lower and upper extremities Abdomen: Soft, non-tender Bowel Sounds: Present Musculoskeletal: No CVA tenderness, no obvious deformity, moving all extremities in a grossly normal manner Neurological: A&Ox3, CN II-XII Intact, moving all extremities symmetrically Psychiatric: Normal affect and mood Triage Information Reviewed: Yes Vital Signs On Initial Exam: Initial Vitals Temp Pulse Resp BP Pulse Ox 97.4 F 68 14 124/84 100 10/26/17 12:15 10/26/17 12:15 10/26/17 12:15 10/26/17 12:15 10/26/17 12:15 Vital Signs Reviewed: Yes Diagnostics - Vital Signs Vital Signs Temp Pulse Resp BP Pulse Ox 10/26/17 12:15 97.4 F 68 14 124/84 100 - Laboratory Result Diagrams: 10/26/17 14:43 10/26/17 14:43 Lab Statement: Any lab studies that have been ordered have been reviewed, and results considered in the medical decision making process. - Radiology CXR Radiology Interpretation Completed By: Radiologist - SMALL LEFT BASILAR INFILTRATE IMPROVED FROM THE PRIOR STUDY. ED PHYSICIAN REVIEWS AND AGREES Course/Dx - Course Assessment/Plan: 37 y/o female presents to ED c/o constant difficulty breathing for several days. Currently being treated for PNA. Started meds 2 days ago. CXR SHOWS IMPROVING PNA. D-DIMER NEGATIVE. Pt will be d/c home w/ f/u PCP. - Diagnoses Provider Diagnoses: Dehydration, Pneumonia Discharge - Sign-Out/Discharge Documenting (check all that apply): Patient Departure - Discharge Plan Condition: Stable Disposition: HOME Patient Education Materials: Dehydration (ED), Pneumonia (ED) Referrals: Mario Swanson MD [Primary Care Provider] - Additional Instructions: continue to take the antibiotics as previously instructed. return if worse or any new symptoms. It is important to follow up with your primary care physician by Monday. Take tylenol for pain or discomfort. - Billing Disposition and Condition Condition: STABLE Disposition: Home - Attestation Statements Document Initiated by Scribe: Yes Documenting Scribe: Jose Roca Provider For Whom La is Documenting (Include Credential): Kimberly Nicole MD Scribe Attestation: Jose Turner, scribed for Kimberly Nicole MD on 10/26/17 at 1704. Scribe Documentation Reviewed: Yes Provider Attestation: The documentation as recorded by the Jose rivera accurately reflects the service I personally performed and the decisions made by Kimberly erazo MD
[2017-10-26 14:11] LABS: Urine Appearance Clear; Urine Blood Negative (Negative); Urine Color Straw; Urine Ketones Negative (Negative); Urine Protein Negative (Negative); Urine Specific Gravity 1.003 (1.010-1.030); Urine Urobilinogen Negative (Negative)
[2017-10-26 14:55] LABS: ABS Basophils 0 10^3/ul (0-0.2); ABS Eosinophils 0.2 10^3/ul (0-0.6); ABS Lymphocytes 2.1 10^3/ul (1.0-4.8); ABS Monocytes 0.4 10^3/ul (0-0.8); ABS Neutrophils 1.6 10^3/ul (1.5-7.7); ABS Nucleated RBC 0 10^3/ul; Eosinophil % 3.9 % (0-6); Hematocrit 39 % (35-47); Hemoglobin 13.3 g/dl (12.0-16.0); Lymphocyte % 48.7 % (25-47); Mean Corpuscular HGB Conc 34 g/dl (31-36); Mean Corpuscular Hemoglobin 29 pg (27-31); Mean Corpuscular Volume 84 fL (80-97); Mean Platelet Volume 7.5 um3 (7.4-10.4); Nucleated Red Blood Cells % 0.2; Platelet Count 267 10^3/ul (150-450); Red Blood Count 4.65 10^6/ul (4.00-5.40); Red Cell Distribution Width 14 % (10.5-15); White Blood Count 4.3 10^3/ul (3.5-10.8)
[2017-10-26 15:13] LABS: EGFR Non-African American 125.1 (>60)
--- NOTE | 2017-10-26 15:16 | RAD ---
INDICATION: Dyspnea. COMPARISON: Comparison is made with a prior study from October 23, 2017. TECHNIQUE: A portable view of the chest was obtained. FINDINGS: Cardiac and mediastinal contours appear to be within normal limits. There is a small patchy infiltrate at the left lung base which appears less prominent than on the prior study. No pleural effusion is seen. IMPRESSION: SMALL LEFT BASILAR INFILTRATE IMPROVED FROM THE PRIOR STUDY.
[2017-10-26 15:34] VITALS: BP 101/63
== END | disposition home or self-care (01) ==
LOC: ED 12:08
DX: E86.0 Dehydration (principal); J18.9 Pneumonia, unspecified organism
CPT/HCPCS: 36415; 71045; 80053; 81003; 83735; 84443; 84702; 85025; 85379; 96360; 99283

== ENCOUNTER 2018-10-09 07:43 | Emergency (ER) | payer BC, OTHER ==
[2018-10-09 07:55] VITALS: BP 109/73
--- NOTE | 2018-10-09 09:26 | UC ---
UC General HPI - HPI Summary HPI Summary: RN notes - hives in the am and in afternoon had severe abd pain and bloody mucus stool x 3 states abd paon constant but now only moderate Pleasant 38 yo female presents c/o abd pain since yesterday. Had an episode of diarrhea yesterday, thought sx would be better afterwards, but they weren't better. Has had mucoid like stool with blood since then. + nausea no vomit. Subjective fever yesterday. No chills. No rash. No urinary sx. no sob /cp / palpitations. Last mens 09/27/18. - History of Current Complaint Chief Complaint: UCAbdominalPain Stated Complaint: BLOOD IN STOOL, ABD PAIN, Time Seen by Provider: 10/09/18 09:25 Hx Obtained From: Patient Hx Last Menstrual Period: 09/27/18 Pain Intensity: 4 - Allergy/Home Medications Allergies/Adverse Reactions: Allergies Allergy/AdvReac Type Severity Reaction Status Date / Time amoxicillin [From Augmentin] Allergy See Comment Verified 10/23/17 21:01 clarithromycin Allergy Unknown Verified 10/23/17 21:01 Reaction Details clavulanic acid Allergy See Comment Verified 10/23/17 21:01 [From Augmentin] PMH/Surg Hx/FS Hx/Imm Hx Previously Healthy: Yes - 20mo ago - Surgical History Surgical History: Yes Surgery Procedure, Year, and Place: wisdom teeth extraced - Family History Known Family History: Positive: Diabetes, Other - POS: brain CA - Social History Alcohol Use: None Substance Use Type: None Smoking Status (MU): Never Smoked Tobacco Have You Smoked in the Last Year: No - Immunization History Most Recent Influenza Vaccination: 11/2016 Most Recent Pneumonia Vaccination: never Review of Systems All Other Systems Reviewed And Are Negative: Yes Constitutional: Positive: Other - see hpi Skin: Positive: Negative - see hpi Eyes: Positive: Negative ENT: Positive: Other - see hpi Respiratory: Positive: Negative - see hpi Cardiovascular: Positive: Other Gastrointestinal: Positive: Other - see hpi Motor: Positive: Negative Neurovascular: Positive: Negative Musculoskeletal: Positive: Negative Neurological: Positive: Negative Psychological: Positive: Negative Is Patient Immunocompromised?: No Physical Exam Triage Information Reviewed: Yes Appearance: Well-Nourished, Other: - looks uncomfortable Vital Signs: Initial Vital Signs Temp 97.8 F 10/09/18 07:50 Pulse 87 10/09/18 07:50 Resp 16 10/09/18 07:50 BP 109/73 10/09/18 07:50 Pulse Ox 100 10/09/18 07:50 Vital Signs Reviewed: Yes Eye Exam: Normal ENT: Positive: Other - mm a little dry, o/w ok Neck exam: Normal Neck: Positive: Supple, Nontender Respiratory Exam: Normal Respiratory: Positive: Chest non-tender, Lungs clear, Normal breath sounds, No respiratory distress, No accessory muscle use Cardiovascular Exam: Normal Cardiovascular: Positive: RRR, No Murmur, Pulses Normal, Brisk Capillary Refill Abdominal Exam: Other - soft + tender midepig, R and L upper abd, RLQ No rebound. No focal tender. No cvat. + bs, slightly hyperactive Musculoskeletal Exam: Normal Musculoskeletal: Positive: Strength Intact Neurological Exam: Normal Psychological Exam: Normal Skin Exam: Normal - nondiaphoretic. no visible or reported rash. Course/Dx - Course Course Of Treatment: Encourage evaluation and management in the ED. Declines EMS, her will drive. Will call 911 if problems en route. RN from here notified ED. Urine dip - noted. Ucg neg. - Diagnoses Provider Diagnosis: Acute abdominal pain Discharge - Sign-Out/Discharge Documenting (check all that apply): Patient Departure All imaging exams completed and their final reports reviewed: No Studies - Discharge Plan Condition: Stable Disposition: HOME-RECOMMEND TO ED Patient Education Materials: Acute Abdominal Pain (ED) Referrals: Mario Swanson MD [Primary Care Provider] - Additional Instructions: Please go directly to the Emergency Department. Stop and call 911 if problems en route. - Billing Disposition and Condition Condition: STABLE Disposition: Home-Recommend to ED
== END 2018-10-09 09:50 | disposition home health service (06) ==
LOC: UCEAST 07:43
DX: R10.9 Unspecified abdominal pain (principal)
CPT/HCPCS: 81002; 81025; 99212; G0463

== ENCOUNTER 2018-10-09 10:10 | Emergency (ER) | payer BC ==
[2018-10-09 11:23] LABS: ABS Eosinophils 0.1 10^3/ul (0-0.6); ABS Lymphocytes 2.2 10^3/ul (1.0-4.8); ABS Monocytes 0.3 10^3/ul (0-0.8); ABS Neutrophils 3.2 10^3/ul (1.5-7.7); Eosinophil % 1.3 %; Hematocrit 43 % (35-47); Hemoglobin 14.5 g/dL (12.0-16.0); Lymphocyte % 37.2 %; Mean Corpuscular HGB Conc 34 g/dL (31-36); Mean Corpuscular Hemoglobin 30 pg (27-31); Mean Corpuscular Volume 87 fL (80-97); Nucleated Red Blood Cells % 0.1; Platelet Count 322 10^3/uL (150-450); Red Cell Distribution Width 14 % (10-15); White Blood Count 5.9 10^3/uL (3.5-10.8)
[2018-10-09 11:52] LABS: HCG Pregnancy < 0.60 mIU/mL
[2018-10-09 11:59] LABS: ALT 13 U/L (7-52); AST 13 U/L (13-39); Albumin 4.7 g/dL (3.2-5.2); Albumin/Globulin Ratio 1.7 (1-3); Alkaline Phosphatase 56 U/L (34-104); Anion Gap 6 mmol/L (2-11); BUN/Creatinine Ratio 9.2 (8-20); Blood Urea Nitrogen 6 mg/dL (6-24); C Reactive Protein < 1.00 mg/L (<8.01); CO2 Carbon Dioxide 28 mmol/L (22-32); Calcium 9.5 mg/dL (8.6-10.3); Chloride 104 mmol/L (101-111); EGFR African American 124.1 (>60); EGFR Non-African American 102.6 (>60); Globulin 2.8 g/dL (2-4); Glucose 97 mg/dL (70-100); Potassium 3.9 mmol/L (3.5-5.0); Sodium 138 mmol/L (135-145); Total Protein 7.5 g/dL (6.4-8.9)
[2018-10-09] MEDS ORDERED: NS 0.9% 1000 ML** 1,000 ML IV ONE (12:31)
[2018-10-09] MEDS ORDERED: Ketorolac INJ* 30 MG/ML 1 ML VIAL IV PUSH ONE (12:32)
[2018-10-09] MEDS ORDERED: Ondansetron INJ* 2 MG/ML VIAL IV ONE (12:32)
[2018-10-09 13:58] LABS: Urine Appearance Clear; Urine Bilirubin Negative (Negative); Urine Blood Negative (Negative); Urine Color Amber; Urine Glucose Negative (Negative); Urine Ketones 1+ (Negative); Urine Nitrite Negative (Negative); Urine Protein Negative (Negative); Urine Specific Gravity 1.024 (1.010-1.030); Urine Urobilinogen Negative (Negative)
[2018-10-09] MEDS ORDERED: Iohexol 300* (CONTRAST) 10 ML SDV IV ONE (14:21)
[2018-10-09] MEDS ORDERED: Pantoprazole IV* 40 MG IV ONE (14:22)
--- NOTE | 2018-10-09 14:22 | ED ---
GI/ HPI - HPI Summary HPI Summary: 38-year-old female presents with abdominal pain since yesterday. She said that she had a couple episodes of bloody diarrhea. She states that did have some mucous diarrhea in addition. She has not had diarrhea since morning. She denies any sick contacts. Denies eating anything different. No recent travel. She admits to potential fevers. She admits to nausea but no vomiting. this has never happened before. No family history of ulcerative colitis or Crohn's. Denies any urinary symptoms. No previous abdominal surgeries. Has no medical conditions. no recent antibiotic usage. - History of Current Complaint Chief Complaint: EDAbdPain Time Seen by Provider: 10/09/18 12:20 Stated Complaint: STOMACH PAIN PER PT Hx Last Menstrual Period: 09/27/18 Pain Intensity: 4 - Allergy/Home Medications Allergies/Adverse Reactions: Allergies Allergy/AdvReac Type Severity Reaction Status Date / Time amoxicillin [From Augmentin] Allergy See Comment Verified 10/23/17 21:01 clarithromycin Allergy Unknown Verified 10/23/17 21:01 Reaction Details clavulanic acid Allergy See Comment Verified 10/23/17 21:01 [From Augmentin] Home Medications: Home Medications Multivitamins/Minerals TAB* [Theragran/minerals TAB*] 1 tab PO DAILY 10/09/18 [ History Confirmed 10/09/18] PMH/Surg Hx/FS Hx/Imm Hx Endocrine/Hematology History: Denies: Hx Diabetes, Hx Thyroid Disease Cardiovascular History: Denies: Hx Hypercholesterolemia, Hx Hypertension, Hx Peripheral Vascular Disease Respiratory History: Denies: Hx Asthma, Hx Chronic Obstructive Pulmonary Disease (COPD) GI History: Denies: Hx Ulcer Musculoskeletal History: Denies: Hx Arthritis, Hx Osteoporosis Sensory History: Denies: Hx Cataracts, Hx Contacts or Glasses, Hx Glaucoma Opthamlomology History: Denies: Hx Cataracts, Hx Contacts or Glasses, Hx Glaucoma Neurological History: Reports: Hx Headaches Denies: Hx Seizures, Hx Transient Ischemic Attacks (TIA) Psychiatric History: Denies: Hx Anxiety, Hx Depression - Surgical History Surgery Procedure, Year, and Place: wisdom teeth extracted Infectious Disease History: No Infectious Disease History: 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" Denies: Hx Clostridium Difficile, Hx Human Immunodeficiency Virus (HIV), Hx of Known/Suspected MRSA, Hx Shingles, Hx Tuberculosis, Hx Known/Suspected VRE, Hx Known/Suspected VRSA, History Other Infectious Disease, Traveled Outside the [place] in Last 30 Days - Family History Known Family History: Positive: Diabetes, Other - POS: brain CA - Social History Alcohol Use: None Substance Use Type: Reports: None Hx Tobacco Use: No Smoking Status (MU): Never Smoked Tobacco Have You Smoked in the Last Year: No Review of Systems Negative: Fever Negative: Chest Pain Negative: Shortness Of Breath Positive: Abdominal Pain, Diarrhea, Nausea. Negative: Vomiting Negative: dysuria All Other Systems Reviewed And Are Negative: Yes Physical Exam Triage Information Reviewed: Yes Vital Signs On Initial Exam: Initial Vitals Temp Pulse Resp BP Pulse Ox 97.2 F 81 18 118/73 98 10/09/18 10:13 10/09/18 10:13 10/09/18 10:13 10/09/18 10:13 10/09/18 10:13 Vital Signs Reviewed: Yes Appearance: Positive: Well-Appearing Skin: Positive: Warm, Dry Head/Face: Positive: Normal Head/Face Inspection Eyes: Positive: Normal, Conjunctiva Clear ENT: Positive: Pharynx normal Respiratory/Lung Sounds: Positive: Clear to Auscultation, Breath Sounds Present Cardiovascular: Positive: Normal, RRR Abdomen Description: Positive: Soft, Other: - diffuse abdominal tenderness Bowel Sounds: Positive: Present Musculoskeletal: Positive: Normal Neurological: Positive: Normal Psychiatric: Positive: Normal Diagnostics - Vital Signs Vital Signs Temp Pulse Resp BP Pulse Ox 10/09/18 13:22 73 91/76 100 10/09/18 13:00 77 100 10/09/18 12:47 61 103/70 98 10/09/18 12:17 65 102/73 99 10/09/18 12:07 97.0 F 69 20 104/66 98 10/09/18 10:13 97.2 F 81 18 118/73 98 - Laboratory Lab Results: Lab Results 10/09/18 10/09/18 10/09/18 Range/Units 11:04 11:04 11:04 WBC 5.9 (3.5-10.8) 10^3/uL RBC 4.90 H (3.70-4.87) 10^6 /uL Hgb 14.5 (12.0-16.0) g/dL Hct 43 (35-47) % MCV 87 (80-97) fL MCH 30 (27-31) pg MCHC 34 (31-36) g/dL RDW 14 (10-15) % Plt Count 322 (150-450) 10^3/uL MPV 8.0 (7.4-10.4) fL Neut % (Auto) 54.9 % Lymph % (Auto) 37.2 % [place] % (Auto) 5.8 % Eos % (Auto) 1.3 % Baso % (Auto) 0.8 % Absolute Neuts (auto) 3.2 (1.5-7.7) 10^3/ul Absolute Lymphs (auto) 2.2 (1.0-4.8) 10^3/ul Absolute Monos (auto) 0.3 (0-0.8) 10^3/ul Absolute Eos (auto) 0.1 (0-0.6) 10^3/ul Absolute Basos (auto) 0.0 (0-0.2) 10^3/ul Absolute Nucleated RBC 0.0 10^3/ul Nucleated RBC % 0.1 Sodium 138 (135-145) mmol/L Potassium 3.9 (3.5-5.0) mmol/L Chloride 104 (101-111) mmol/L Carbon Dioxide 28 (22-32) mmol/L Anion Gap 6 (2-11) mmol/L BUN 6 (6-24) mg/dL Creatinine 0.65 (0.51-0.95) mg/dL Est GFR ( Amer) 124.1 (>60) Est GFR (Non-Af Amer) 102.6 (>60) BUN/Creatinine Ratio 9.2 (8-20) Glucose 97 (70-100) mg/dL Lactic Acid 0.9 (0.5-2.0) mmol/L Calcium 9.5 (8.6-10.3) mg/dL Total Bilirubin 0.70 (0.2-1.0) mg/dL AST 13 (13-39) U/L ALT 13 (7-52) U/L Alkaline Phosphatase 56 (34-104) U/L C-Reactive Protein < 1.00 (<8.01) mg/L Total Protein 7.5 (6.4-8.9) g/dL Albumin 4.7 (3.2-5.2) g/dL Globulin 2.8 (2-4) g/dL Albumin/Globulin Ratio 1.7 (1-3) Lipase 10 L (11.0-82.0) U/L Beta HCG, Quant < 0.60 mIU/mL Urine Color Urine Appearance Urine pH (5-9) Ur Specific [place] (1.010-1.030) Urine Protein (Negative) Urine Ketones (Negative) Urine Blood (Negative) Urine Nitrate (Negative) Urine Bilirubin (Negative) Urine Urobilinogen (Negative) Ur Leukocyte Esterase (Negative) Urine Glucose (Negative) 10/09/18 Range/Units 13:20 WBC (3.5-10.8) 10^3/uL RBC (3.70-4.87) 10^6 /uL Hgb (12.0-16.0) g/dL Hct (35-47) % MCV (80-97) fL MCH (27-31) pg MCHC (31-36) g/dL RDW (10-15) % Plt Count (150-450) 10^3/uL MPV (7.4-10.4) fL Neut % (Auto) % Lymph % (Auto) % [place] % (Auto) % Eos % (Auto) % Baso % (Auto) % Absolute Neuts (auto) (1.5-7.7) 10^3/ul Absolute Lymphs (auto) (1.0-4.8) 10^3/ul Absolute Monos (auto) (0-0.8) 10^3/ul Absolute Eos (auto) (0-0.6) 10^3/ul Absolute Basos (auto) (0-0.2) 10^3/ul Absolute Nucleated RBC 10^3/ul Nucleated RBC % Sodium (135-145) mmol/L Potassium (3.5-5.0) mmol/L Chloride (101-111) mmol/L Carbon Dioxide (22-32) mmol/L Anion Gap (2-11) mmol/L BUN (6-24) mg/dL Creatinine (0.51-0.95) mg/dL Est GFR ( Amer) (>60) Est GFR (Non-Af Amer) (>60) BUN/Creatinine Ratio (8-20) Glucose (70-100) mg/dL Lactic Acid (0.5-2.0) mmol/L Calcium (8.6-10.3) mg/dL Total Bilirubin (0.2-1.0) mg/dL AST (13-39) U/L ALT (7-52) U/L Alkaline Phosphatase (34-104) U/L C-Reactive Protein (<8.01) mg/L Total Protein (6.4-8.9) g/dL Albumin (3.2-5.2) g/dL Globulin (2-4) g/dL Albumin/Globulin Ratio (1-3) Lipase (11.0-82.0) U/L Beta HCG, Quant mIU/mL Urine Color [place] Urine Appearance Clear Urine pH 6.0 (5-9) Ur Specific [place] 1.024 (1.010-1.030) Urine Protein Negative (Negative) Urine Ketones 1+ A (Negative) Urine Blood Negative (Negative) Urine Nitrate Negative (Negative) Urine Bilirubin Negative (Negative) Urine Urobilinogen Negative (Negative) Ur Leukocyte Esterase Negative (Negative) Urine Glucose Negative (Negative) Result Diagrams: 10/09/18 11:04 10/09/18 11:04 Lab Statement: Any lab studies that have been ordered have been reviewed, and results considered in the medical decision making process. Re-Evaluation - Re-Evaluation First Eval Re-Evaluation Time: 14:27 Change: Improved Comment: feeling better Second Eval Re-Evaluation Time: 16:14 Comment: discussed results, feeling much better GIGU Course/Dx - Course Course Of Treatment: 38-year-old female presents with abdominal pain since yesterday. She said that she had a couple episodes of bloody diarrhea. She has not had diarrhea since morning. She denies any sick contacts. Denies eating anything different. No recent travel. She admits to potential fevers. She admits to nausea but no vomiting. this has never happened before. No family history of ulcerative colitis or Crohn's. Denies any urinary symptoms. No previous abdominal surgeries. Has no medical conditions. On exam tenderness in epigastric and lower quadrants. White blood count normal. CRP normal. h/h normal. patient was unable to give us a stool culture here. CT shows no acute findings. discussed with bloody diarrhea potential placing on antibiotics and patient declined as it feeling better. would just like to do supporative care. told follow up with [facility]. patient understand and agrees with plan. - Diagnoses Differential Diagnoses - Female: Colitis, Diverticulitis, Urinary Tract Infection Provider Diagnoses: Diarrhea, Abdominal pain Discharge - Sign-Out/Discharge Documenting (check all that apply): Patient Departure Patient Received Moderate/Deep Sedation with Procedure: No - Discharge Plan Condition: Good Disposition: HOME Patient Education Materials: Abdominal Pain (ED) Referrals: Mario Swanson MD [Primary Care Provider] - Additional Instructions: Drink small amounts of fluid as tolerated When able to eat follow BRAT diet: Bananas, rice, applesauce, toast Take ibuprofen or Tylenol for pain as needed every 6 hours Follow up with primary within 5 days Return to ED if develop any new or worsening symptoms - Billing Disposition and Condition Condition: GOOD Disposition: Home - Attestation Statements Provider Attestation: I was available for consult. This patient was seen by the MYESHA. The patient was not presented to, seen by, or examined by me. -Denis
[2018-10-09 16:27] VITALS: BP 105/71
== END 2018-10-09 16:26 | disposition home or self-care (01) ==
LOC: ED 10:10
DX: R10.9 Unspecified abdominal pain (principal); R19.7 Diarrhea, unspecified; Z88.1 Allergy status to other antibiotic agents; Z88.0 Allergy status to penicillin
CPT/HCPCS: 36415; 74177; 80053; 81003; 83605; 83690; 84702; 85025; 86140; 96361; 96374; 96375; 99283; J1885; J2405; Q9967